=== PATIENT | male | born 2000 | race Caucasian/White ===

== ENCOUNTER 2023-01-20 15:22 | Inpatient (IN) | payer MEDICAID, SELFPAY ==
[2023-01-20] VITALS (15 sets, daily range): BP systolic 117–152; BP diastolic 72–99; PULSE 103–139; RESP 18; TEMP 36.2–37.7; O2SAT 97–100
--- NOTE | ~2023-01-20 | NM_ITS ---
EXAMINATION: NM renal flow and function DATE: 01/24/23 INDICATION: Pelvic mass. Right lower quadrant abdominal pain. TECHNIQUE: 8 mCi Tc-99m MAG3 was administered IV. The patient was scanned in the supine position. A posterior abdominal radionuclide angiogram was obtained. A subsequent time course of static images of the kidneys, ureters, and bladder was obtained. COMPARISON: CT abdomen and pelvis 01/20/23 FINDINGS: The posterior abdominal radionuclide angiogram and sequential static images show normal siz e, position, and morphology of the left kidney. There is no right kidney. Peak renal parenchymal upta ke was 4 min in left kidney (normal peak 3-5 minutes). No abnormalities of the ureters or bladder ar e seen. T1/2 for clearance of activity from the left kidney and proximal collecting system was 14 minutes. IMPRESSION: 1. Single left kidney. Reviewed, dictated and finalized at location A. IMPRESSION: 1. Single left kidney.
--- NOTE | ~2023-01-20 | CT_ITS ---
EXAMINATION: CT abdomen pelvis w con INDICATION: Abdominal pain TECHNIQUE: Computed tomographic images of the abdomen and pelvis were obtained after the administrati on of 100 cc of Omnipaque 350 intravenous contrast. The dose-length product (DLP) was 295.13 mGy-cm. Automated exposure control and iterative reconstruction technique were employed. COMPARISON: None available FINDINGS: The lung bases are clear. The heart size is normal. The liver, spleen, pancreas, gallbladde r, and adrenal glands are normal. The left kidney is unremarkable. There is a soft tissue density of the right pelvis which likely reflects a somewhat deformed right kidney. There is marked wall thicken ing and inflammatory change of the terminal ileum. There are multiple interloop abscesses. The larges t appears to measure approximately 4.7 x 3.9 cm. There are multiple reactive lymph nodes. The appendi x is normal. There is a moderate volume of ascites. IMPRESSION: 1. Marked wall thickening and inflammation of the terminal ileum, likely Crohn's disease. 2. Multiple interloop abscesses measuring up to 4.7 cm. 3. Moderate volume of ascites. Reviewed, dictated and finalized at location F. IMPRESSION: 1. Marked wall thickening and inflammation of the terminal ileum, likely Crohn' s disease. 2. Multiple interloop abscesses measuring up to 4.7 cm. 3. Moderate volume of ascites.
--- NOTE | 2023-01-20 18:05 | ED.ABDPAIN ---
HPI - Abdominal Pain General Chief Complaint: Abdominal Pain <JOSE Aviles Last Filed: 01/20/23 22:19> Stated Complaint: abdominal pain <JOSE Aviles Last Filed: 01/20/23 22:19> Time Seen by Provider: 01/20/23 17:43 <JOSE Aviles Last Filed: 01/20/23 22:19> Source: patient and family <JOSE Aviles Last Filed: 01/20/23 22:19> Mode of arrival: ambulatory <JOSE Aviles Last Filed: 01/20/23 22:19> Limitations: no limitations <JOSE Aviles Last Filed: 01/20/23 22:19> History of Present Illness HPI narrative: Patient is a 22-year-old male who presents to the ED with report of diffuse abdominal pain. Patient reports having intermittent diffuse cramping pain for the last 4 weeks. He has been taking ibuprofen and Tums for this at times. Today the pain became more sharp and he developed a fever up to 102 degrees at home, which prompted his presentation. He has not taken anything for his pain or fever today. Patient believes he may have IBS. He denies any nausea, vomiting, diarrhea, constipation, rectal bleeding, melena, urinary symptoms. Mother mentions he has also had a cough recently, which patient believes is related to allergies. <JSOE Aviles Last Filed: 01/20/23 22:19> Related Data Allergies/Adverse Reactions: Allergies Allergy/AdvReac Type Severity Reaction Status Date / Time Penicillins Allergy Mild RASH Verified 03/14/12 16:41 <JOSE Aviles Last Filed: 01/20/23 22:19> Review of Systems Review of Systems: CONSTITUTIONAL: See HPI. ENT: Denies rhinorrhea, congestion, sore throat. CARDIOVASCULAR: Denies chest pain. RESPIRATORY: See HPI. GASTROINTESTINAL: See HPI. GENITOURINARY: Denies dysuria or hematuria. SKIN: Denies rash or itching. MUSCULOSKELETAL: Denies back pain, joint pain, or myalgia. <Mariama Magana PA-C - Last Filed: 01/20/23 22:19> All systems reviewed & are unremarkable except as noted in HPI and below <Mariama Magana PA-C - Last Filed: 01/20/23 22:19> PMFSH Past Medical History Medical History: Medical History (Updated 01/21/23 @ 05:52 by Cathy Marshall DO) No significant past medical history <Mariama Magana PA-C - Last Filed: 01/20/23 22:19> Surgical History Surgical History: Surgical History (Updated 01/21/23 @ 05:52 by Cathy Marshall DO) History of esophagogastroduodenoscopy (EGD) <Mariama Magana PA-C - Last Filed: 01/20/23 22:19> Family History Family History: Family History (Updated 01/21/23 @ 05:55 by Cathy Marshall DO) Father Healthy adult Mother Healthy adult Sibling Healthy adult <Mariama Magana PA-C - Last Filed: 01/20/23 22:19> Social History Social History: Social History (Updated 01/21/23 @ 05:56 by Cathy Marshall DO) Social History: He recently graduated from the [employer] with associate's degree in film and editing. He uses marijuana edibles on occasion. He is a lifelong nonsmoker. He occasionally drinks alcohol in moderation. He lives at home with his parents. Smoking status: Never smoker Alcohol intake: current Drinks per week: 1 Substance use: never Lack of Transportation: No Lack of Food: Never True Current Housing: I Have Housing Concerned About Future Housing: No Difficulty Paying Gas/Electric Bills: No Difficulty Paying for Meds: No Currently Unemployed: No Education: Associate Degree Difficulty w/ Childcare or Family Care: No Spiritual care concerns: No <JOSE Aviles Last Filed: 01/20/23 22:19> Exam Narrative: GENERAL: Well appearing, well-nourished, non-toxic, in no acute distress. HEAD: Normocephalic, atraumatic. NECK: Supple. No adenopathy, no masses. RESPIRATORY: Airway patent, respirations nonlabored. Clear to auscultation bilaterally, no
[2023-01-20] MEDS: SODIUM CHLORIDE 0.9% IV 1,000 ML 999 ML IV CONT ×2 (18:17→21:36)
[2023-01-20] MEDS: ACETAMINOPHEN 500 MG TABLET 1000 MG PO (18:17)
[2023-01-20 18:19] LABS: Hematocrit 43.8 % (42.0-52.0); Hemoglobin 13.9 g/dL (14.0-18.0); Mean Corpuscular HGB Conc 31.7 g/dl (32-36); Mean Corpuscular Hemoglobin 25.5 pg (26-34); Mean Corpuscular Volume 80.4 fl (80-100); Mean Platelet Volume 9.6 fl (7.4-10.4); Platelet Count Result 388 k/mm3 (150-375); Red Blood Count 5.45 M/mm3 (4.6-6.20); Red Cell Distribution Width 12.5 % (11.5-14.5); White Blood Count 21.6 K/mm3 (4.5-10.0)
[2023-01-20 18:23] LABS: Add Urine Microscopic? YES; Appearance Urine Clear (Clear); Bacteria Urine None Seen /hpf; Bilirubin Urine Negative (Negative); Blood Urine Negative (Negative); Color Urine Yellow (Yellow); Glucose Urine UA Negative (Negative); Ketones Urine Negative (Negative); Leukocyte Esterase Ur Trace LEU/UL (Negative); Nitrate Urine Negative (Negative); Non Pathogenic Casts 0-2; Protein Urine 1+ mg/dL (Negative); RBC Urine 0-2 /hpf (0-2); Specific Grav Ur 1.021 (1.001-1.035); Squamous Epithelial Cell Urine None seen /hpf (Few); Urobilinogen Urine 0.2 mg/dL (<2.0); WBC Urine 0-5 /hpf; pH Urine 6.5 (5.0-9.0)
[2023-01-20 18:27] LABS: Alanine Aminotransferase 20 U/L (6-50); Albumin Level 4.3 g/dL (3.5-5.1); Alkaline Phosphatase 85 U/L (38-126); Anion Gap 8 mmol/L (8-16); Aspartate Amino Transferase 20 U/L (17-59); Bilirubin,Total 0.5 mg/dL (0.2-1.3); Blood Urea Nitrogen 15 mg/dL (9-20); Calcium 8.9 mg/dL (8.4-10.2); Carbon Dioxide 33 mmol/L (22-30); Chloride 101 mmol/L (98-107); Estimated Glomerular Filt Rate > 60; Glucose 101 mg/dL (65-110); Lipase 160 U/L (23-300); Potassium 3.4 mmol/L (3.4-5.0); Sodium 142 mmol/L (137-145)
[2023-01-20 18:45] LABS: Band Neutrophils Percent 2 % (0-6); Lymphocytes Absolute Manual 0.86 K/mm3 (1.1-4.5); Monocytes Absolute Manual 1.29 K/mm3 (0.1-0.90); Monocytes Percent Manual 6 % (3-9); Neutrophils Absolute Manual 19.44 K/mm3 (1.3-6.7); Neutrophils Percent Manual 88 % (46-73); Total Cells Counted 100
[2023-01-20 18:46] LABS: Hypochromasia 1+ (NORMAL); Schistocytes None Seen (NORMAL)
[2023-01-20 19:11] LABS: Influenza A QL RT-PCR Negative (Negative); Influenza B QL RT-PCR Negative (Negative); SARS-CoV-2 RNA PCR Negative (Negative)
[2023-01-20] MEDS: metroNIDAZOLE 500 MG/ISO 100ML 500 MG/100 ML BAG 100 MG IVPB (20:38)
[2023-01-20 22:14] LABS: Lactic Acid Reflex 1.4 mmol/L (0.7-2.0)
--- NOTE | 2023-01-20 22:20 | ADMGEN ---
This patient, Enrique Shukla, was admitted to [facility] Surg Room 321-. Patient/family oriented to hospital policies and general routines including ID bracelet, bed and alarms, visiting hours, pain management, procedures, bathroom and other care routines, personal items, smoking policy, room service/diet, and visiting hours. Information on how to activate the Rapid Response Team has been discussed. Patient/Family are encouraged to report perceived risks to care and to ask questions if they do not understand what they are told or what they should do.
[2023-01-21] MEDS: ONDANSETRON INJ 4 MG/2 ML VIAL IV PUSH ×4 (00:26→23:02)
--- NOTE | 2023-01-21 05:38 | PM.IMHP ---
H&P: HPI History of Present Illness Date/Time: 01/21/23 01:00 Chief Complaint: Abdominal pain for several weeks Narrative: 22-year-old male previously healthy who presented to the ER with sharp intermittent abdominal pain for several weeks. The patient states that in the distant past he had and some intermittent GI issues but it sounds that these issues were when he was extremely young. It was until the last 4 weeks or so that he began having intermittent like sharp stabbing abdominal pain 2/10 in intensity. He would not notice a eliciting or or relieving factors for the abdominal pain. Would not have any diarrhea mucousy stools or abdominal distension. He was having some associated belching. He would report occasional harder stools every couple of months but nothing of any real significance. He reports that once every couple months he may also have a little bit of blood in his stools but nothing that he was overly concerned about. He reports that his weight has been stable between 140-150 lb for several years. He did have an EGD several years ago after having some hematemesis. But it sounds like the hematemesis was due to Juhi-Plummer tears. He reports that he was having some chills yesterday before coming to the ER. His parents checked his temperature at home and his temperature was a 102?. By time he arrived to the ER his temperature was normal. He did not take any antipyretics. He had not tried taking any medications for his abdominal pain. He denies any family history of inflammatory bowel disease. A CT scan in the ER demonstrated marked wall thickening and inflammation of the terminal ileum likely due to Crohn's disease was multiple inter loop abscesses measuring 4.7 cm at the largest. Moderate volume of ascites. Patient was admitted for treatment of intra-abdominal abscess and sepsis. The patient received 2 L of IV fluid bolus in the ER with improvement in his tachycardia. He was started on antibiotic therapy with Rocephin and Flagyl. Review of Systems Review of Systems: 12 systems were reviewed with pertinent positives and negatives per HPI. Except as documented in the HPI, all other systems were reviewed and are negative. COUNT INCLUDES THE [facility] Past Medical History Medical History (Updated 01/21/23 @ 05:52 by Cathy Marshall DO) No significant past medical history Surgical History Surgical History (Updated 01/21/23 @ 05:52 by Cathy Marshall DO) History of esophagogastroduodenoscopy (EGD) Family History Family History (Updated 01/21/23 @ 05:55 by Cathy Marshall DO) Father Healthy adult Mother Healthy adult Sibling Healthy adult Social History Social History (Updated 01/21/23 @ 05:56 by Cathy Marshall DO) Social History: He recently graduated from the [employer] with associate's degree in film and editing. He uses marijuana edibles on occasion. He is a lifelong nonsmoker. He occasionally drinks alcohol in moderation. He lives at home with his parents. Smoking status: Never smoker Alcohol intake: current Drinks per week: 1 Substance use: never Lack of Transportation: No Lack of Food: Never True Current Housing: I Have Housing Concerned About Future Housing: No Difficulty Paying Gas/Electric Bills: No Difficulty Paying for Meds: No Currently Unemployed: No Education: Associate Degree Difficulty w/ Childcare or Family Care: No Spiritual care concerns: No Meds Home Medications and Allergies Allergies Allergy/AdvReac Type Severity Reaction Status Date / Time Penicillins Allergy Mild RASH Verified 03/14/12 16:41 Vital Signs Vital Signs - 24 hr 01/20/23 15:48 01/20/23 17:53 01/20/23 17:54 Temperature 99.8 F H Pulse Rate 139 H Respiratory Rate 18 Blood Pressure 117/75 126/84 Pulse Oximetry 99 100 100 Oxygen Delivery Room Air 01/20/23 18:00 01/20/23 18:01 01/20/23 19:01 Temperature Pulse Rate 103 H Respiratory Rate 1
[2023-01-21 05:49] VITALS: BMI 21.7
[2023-01-21 06:00] VITALS: BP 123/62; PULSE 93; RESP 18; TEMP 36.3; O2SAT 100
[2023-01-21] MEDS: SODIUM CHLORIDE 0.9% IV 1,000 ML 100 ML IV CONT ×2 (06:11→18:05)
[2023-01-21] MEDS: metroNIDAZOLE 500 MG/ISO 100ML 500 MG/100 ML BAG 100 MG IVPB ×3 (06:12→21:46)
[2023-01-21 06:21] LABS: Basophils Absolute Auto 0.1 K/mm3 (0.0-0.1); Basophils Percent Auto 0.3 % (0.2-1.2); Eosinophils Percent Auto 0.1 % (0-4.4); Hematocrit 36.8 % (42.0-52.0); Hemoglobin 11.7 g/dL (14.0-18.0); Immature Granulocyte Absolute 0.08 K/mm3 (0.00-0.031); Immature Granulocyte Percent A 0.4 % (0-0.5); Lymphocytes Absolute Auto 1.67 K/mm3 (0.9-3.2); Lymphocytes Percent Auto 9.4 % (18.3-44.2); Mean Corpuscular HGB Conc 31.8 g/dl (32-36); Mean Corpuscular Hemoglobin 25.2 pg (26-34); Mean Corpuscular Volume 79.1 fl (80-100); Mean Platelet Volume 9.6 fl (7.4-10.4); Monocytes Absolute Auto 1.9 K/mm3 (0.1-0.6); Monocytes Percent Auto 10.5 % (2.6-8.5); Neutrophils Absolute Auto 14.1 K/mm3 (1.3-6.7); Neutrophils Percent Auto 79.3 % (45.5-73.1); Platelet Count Result 306 k/mm3 (150-375); Red Blood Count 4.65 M/mm3 (4.6-6.20); Red Cell Distribution Width 12.3 % (11.5-14.5); White Blood Count 17.8 K/mm3 (4.5-10.0)
[2023-01-21 06:35] LABS: Anion Gap 7 mmol/L (8-16); Blood Urea Nitrogen 11 mg/dL (9-20); Calcium 8.4 mg/dL (8.4-10.2); Carbon Dioxide 28 mmol/L (22-30); Chloride 104 mmol/L (98-107); Estimated CRCL calculation 108 ml/min; Estimated Glomerular Filt Rate > 60; Glucose 95 mg/dL (65-110); Potassium 3.5 mmol/L (3.4-5.0); Sodium 139 mmol/L (137-145)
[2023-01-21 08:18] VITALS: O2SAT 99
[2023-01-21] MEDS: ENOXAPARIN 40 MG/0.4 ML SYRINGE SUB-Q (08:18)
--- NOTE | 2023-01-21 09:59 | PM.CNGS ---
Assessment and Plan Assessment and plan (1) Intra-abdominal abscess: Code(s): K65.1 - Peritoneal abscess Status: Acute Assessment and Plan: I have reviewed the CT and discussed the findings with the patient. He has multiple abdominal abscesses and findings consistent with Crohn's disease. He has been started on IV antibiotics and GI has been consulted. Interventional Radiology is not available today, but I will discuss the CT with them tomorrow and determine if percutaneous drainage is feasible. He is currently showing some signs of improvement with bowel rest and IV antibiotics. Will allow for clear liquids today and await further recommendations by GI. (2) Crohn's disease involving terminal ileum: Code(s): K50.00 - Crohn's disease of small intestine without complications Status: Acute (3) Pelvic kidney: Code(s): Q63.2 - Ectopic kidney Status: Acute History of Present Illness Consult details Consult date: 01/21/23 Reason for consult: other (Intraabdominal abscess) Requesting physician: Mariama Magana PA-C Narrative: This is a 22-year-old man who I am asked to see for multiple intra-abdominal abscesses. He presented to the emergency department yesterday with worsening abdominal pain and fevers. He began having some mild cramping abdominal pain about 2-3 weeks ago. This has been intermittent. He then began experiencing fevers yesterday and decided to come into the emergency department. His bowels have been moving, but he does occasionally get diarrhea. He has had a small amount of blood in his stool at times as well. He denies any significant weight loss. He denies any identifying triggers to the pains. He has no family history of Crohn's disease. His pain is slightly improved since being admitted. He has not had a fever since admission. Review of Systems Review of Systems: All systems reviewed & are unremarkable except as noted in HPI and below Constitutional: Constitutional: Reports as per HPI Eyes: Eyes: Denies change in vision ENT: Denies hearing loss, Denies neck pain and Denies sore throat Cardiovascular: Cardiovascular: Denies chest pain and Denies dyspnea Respiratory: Respiratory: Denies cough, Denies dyspnea and Denies wheezing Gastrointestinal: Gastrointestinal: Reports as per HPI Genitourinary: Genitourinary: Denies hematuria and Denies dysuria Musculoskeletal: Musculoskeletal: Denies arthralgias, Denies joint swelling and Denies neck pain Allergic/Immunologic: Allergic/Immunologic: Denies wheezing PMFSH Past Medical History Medical History (Updated 01/21/23 @ 10:04 by De Slade DO) No significant past medical history Pelvic kidney Right pelvic kidney identified on CT 01/20/23 Surgical History Surgical History (Updated 01/21/23 @ 05:52 by Cathy Marshall DO) History of esophagogastroduodenoscopy (EGD) Family History Family History (Updated 01/21/23 @ 05:55 by Cathy Marshall DO) Father Healthy adult Mother Healthy adult Sibling Healthy adult Social History Social History (Updated 01/21/23 @ 05:56 by Cathy Marshall DO) Social History: He recently graduated from the [employer] with associate's degree in film and editing. He uses marijuana edibles on occasion. He is a lifelong nonsmoker. He occasionally drinks alcohol in moderation. He lives at home with his parents. Smoking status: Never smoker Alcohol intake: current Drinks per week: 1 Substance use: never Lack of Transportation: No Lack of Food: Never True Current Housing: I Have Housing Concerned About Future Housing: No Difficulty Paying Gas/Electric Bills: No Difficulty Paying for Meds: No Currently Unemployed: No Education: Associate Degree Difficulty w/ Childcare or Family Care: No Spiritual care concerns: No Meds Home Medications and Allergies Allergies Allergy/AdvReac Type Severity Reaction Stat
--- NOTE | 2023-01-21 12:08 | PM.IMPN ---
Progress Note: A&P Assessment and Plan (1) Sepsis: Qualifiers: Sepsis acute organ dysfunction status: unspecified Sepsis type: sepsis due to unspecified organism Qualified Code(s): A41.9 - Sepsis, unspecified organism Code(s): A41.9 - Sepsis, unspecified organism Status: Acute Assessment and Plan: The patient met sepsis criteria on admission with fever, tachycardia and leukocytosis. Sepsis is due to intra-abdominal abscess associated with terminal ileitis most likely due to Crohn's disease. Patient received 2 L of IV fluid bolus. He was continued on IV fluids due to persistent tachycardia but better now. WBC trending down. No further fevers. BCx pending. Continue IV abx. (2) Intra-abdominal abscess: Code(s): K65.1 - Peritoneal abscess Status: Acute Assessment and Plan: CT scan on admission showing marked wall thickening and inflammation of the terminal ileum with multiple interloop abscesses up to 4.7cm with moderate volume of ascites. Does not appear to have peritoneal signs. Blood cultures are pending. General surgery has been consulted. Patient may need percutaneous drainage of abscesses. Diet per GenSurg Continue empiric antibiotic therapy with Rocephin and Flagyl. (3) Crohn's disease involving terminal ileum: Code(s): K50.00 - Crohn's disease of small intestine without complications Status: Acute Assessment and Plan: Patient has findings concerning for Crohn's disease. Patient will eventually need colonoscopy for further evaluation. GI consulted Check IBD panel. (4) Pelvic kidney: Code(s): Q63.2 - Ectopic kidney Status: Acute Assessment and Plan: CT shows soft tissue density in the right pelvis likely represents a somewhat deformed right kidney. Urinalysis was clear. This is probably an incidental finding. Renal function is normal. He may need NM scan to determine functionality. Subjective Date/time seen: 01/21/23 12:08 Interval history: 22yo healthy male here for abdominal pain. Noting decreased abdominal pain. Passing flatus but no BMs. No n/v but had mild nausea after IV Flagyl. Exam Narrative: AF 97.4 123/62 93 18 99% ra Gen - NARD Chest - CTA bilaterally, nml RR CV - RRR S1/S2 Abd - Soft, ND, No guarding, no rebound, minimal RLQ pain, no referred pain, +BS Ext - No pedal edema Psych - Nml mood and affect Skin - Warm and dry Objective Data Vital Signs Vital Signs: Vital Signs - 24 hr 01/20/23 15:48 01/20/23 17:53 01/20/23 17:54 Temperature 99.8 F H Pulse Rate 139 H Respiratory Rate 18 Blood Pressure 117/75 126/84 Pulse Oximetry 99 100 100 Oxygen Delivery Room Air 01/20/23 18:00 01/20/23 18:01 01/20/23 19:01 Temperature Pulse Rate 103 H Respiratory Rate 18 Blood Pressure 142/89 H 137/82 Pulse Oximetry 100 100 98 Oxygen Delivery 01/20/23 19:01 01/20/23 19:15 01/20/23 19:31 Temperature Pulse Rate Respiratory Rate Blood Pressure 137/82 135/85 137/84 Pulse Oximetry 100 97 97 Oxygen Delivery 01/20/23 19:45 01/20/23 20:00 01/20/23 20:16 Temperature Pulse Rate Respiratory Rate Blood Pressure 141/82 H 136/82 Pulse Oximetry 99 97 99 Oxygen Delivery 01/20/23 20:46 01/20/23 21:01 01/20/23 21:15 Temperature Pulse Rate Respiratory Rate Blood Pressure 136/72 131/78 131/85 Pulse Oximetry 99 100 98 Oxygen Delivery 01/20/23 22:00 01/21/23 06:00 01/21/23 08:18 Temperature 97.1 F L 97.4 F L Pulse Rate 108 H 93 Respiratory Rate 18 18 Blood Pressure 152/99 H 123/62 Pulse Oximetry 100 100 99 Oxygen Delivery Room Air Intake/Output Intake/Output: Intake & Output 01/18/23 01/19/23 01/20/23 01/21/23 23:59 23:59 23:59 23:59 Intake Total 1150 0 Output Total 825 Balance 1150 -825 Meds/Results Medications: Active Medications Generic Name Dose Route Start Last Ad
[2023-01-21 14:00] VITALS: BP 129/73; PULSE 73; RESP 14; TEMP 36.1; O2SAT 97
--- NOTE | 2023-01-21 18:20 | WPDGICN ---
Assessment and Plan Assessment and plan (1) Crohn's disease involving terminal ileum: Code(s): K50.00 - Crohn's disease of small intestine without complications Status: Acute Assessment and Plan: it seems that he has Crohn's disease complicated with intra abdominal abscess, surgery on board will ask IR if can drain on iv antibiotics, then probably will benefit from iv steroids but wait until infection is controlled will get HBV and TB status since he will also need to be on biologics as treatment for Crohn's (this was discussed with mother at bedside and patient)- he will have again medical insurance February 10 also colonoscopy after infection is better to confirm crohn's and get biopsies (2) Intra-abdominal abscess: Code(s): K65.1 - Peritoneal abscess Status: Acute Assessment and Plan: abx surgery on board IR to evaluate (3) Sepsis: Qualifiers: Sepsis acute organ dysfunction status: unspecified Sepsis type: sepsis due to unspecified organism Qualified Code(s): A41.9 - Sepsis, unspecified organism Code(s): A41.9 - Sepsis, unspecified organism Status: Acute Assessment and Plan: on abx (4) Abdominal pain: Code(s): R10.9 - Unspecified abdominal pain Status: Acute (5) Leukocytosis: Code(s): D72.829 - Elevated white blood cell count, unspecified Status: Acute GI Consult Note Consult date/time: 01/21/23 18:20 Reason for consult: abdominal pain, ileitis HPI: Enrique Shukla is a 22 year old male with history of chronic dyspepsia and nausea for years- he had egd more than 5 years ago due to coffee ground emesis and told that had tear treated briely with ppi. He is here with ongoing intermittent sharp stabbing abdominal pain for about 1 month, also belching. Denies weight loss, couple times had diarrhea but for the most part no changes in bowel movement. Pain worsened and then had fevere at home 102F finally came to ER (he did not seek medical care because his medical insurance is not good until February), stable weight and never had colonoscopy. Had leukocytosis and CT scan showed marked wall thickening and inflammation of the terminal ileum, likely Crohn's disease. Multiple interloop abscesses measuring up to 4.7 cm. Moderate volume of ascites. He was started on iv antibiotics. Surgery on board. Review of Systems Constitutional: Constitutional: Reports chills and Reports fever(s) Eyes: Eyes: Denies blurry vision ENT: Reports Normal hearing present Cardiovascular: Cardiovascular: Denies chest pain Respiratory: Respiratory: Denies chest congestion Gastrointestinal: Gastrointestinal: Reports abdominal pain and Reports nausea Genitourinary: Genitourinary: Denies urinary frequency Musculoskeletal: Musculoskeletal: Denies arthralgias Integumentary/Breasts: Skin/Breast: Denies rash Neurologic: Denies confusion Psychiatric: Psychiatric: Denies behavioral changes [facility] Past Medical History Medical History (Updated 01/21/23 @ 18:25 by Timur Barbour MD) Abdominal pain Leukocytosis No significant past medical history Pelvic kidney Right pelvic kidney identified on CT 01/20/23 Surgical History Surgical History (Updated 01/21/23 @ 05:52 by Ctahy Marshall DO) History of esophagogastroduodenoscopy (EGD) Family History Family History (Updated 01/21/23 @ 05:55 by Cathy Marshall DO) Father Healthy adult Mother Healthy adult Sibling Healthy adult Social History Social History (Updated 01/21/23 @ 05:56 by Cathy Marshall DO) Social History: He recently graduated from the [employer] with associate's degree in film and editing. He uses marijuana edibles on occasion. He is a lifelong nonsmoker. He occasionally drinks alcohol in moderation. He lives at home with his parents. Smoking status: Never smoker Alcohol intake: current Drinks per week: 1 Substance use: never Lack o
[2023-01-21 21:40] VITALS: BP 118/70; PULSE 84; RESP 12; TEMP 36.6; O2SAT 100
[2023-01-22] MEDS: SODIUM CHLORIDE 0.9% IV 1,000 ML 100 ML IV CONT (05:12)
[2023-01-22] MEDS: metroNIDAZOLE 500 MG/ISO 100ML 500 MG/100 ML BAG 100 MG IVPB ×3 (05:13→21:02)
[2023-01-22 05:43] VITALS: BP 125/75; PULSE 81; RESP 14; TEMP 36.1; O2SAT 100
[2023-01-22 06:30] LABS: Hematocrit 38.3 % (42.0-52.0); Mean Corpuscular HGB Conc 31.3 g/dl (32-36); Mean Corpuscular Hemoglobin 24.8 pg (26-34); Mean Corpuscular Volume 79.1 fl (80-100); Mean Platelet Volume 9.8 fl (7.4-10.4); Platelet Count Result 318 k/mm3 (150-375); Red Blood Count 4.84 M/mm3 (4.6-6.20); Red Cell Distribution Width 12.4 % (11.5-14.5); White Blood Count 13.4 K/mm3 (4.5-10.0)
[2023-01-22] MEDS: ONDANSETRON INJ 4 MG/2 ML VIAL IV PUSH ×3 (06:30→21:09)
[2023-01-22 06:48] LABS: Erythrocyte Sedimentation Rate 57 mm/hr (0-20)
[2023-01-22 06:53] LABS: Anion Gap 10 mmol/L (8-16); Blood Urea Nitrogen 9 mg/dL (9-20); Calcium 8.5 mg/dL (8.4-10.2); Carbon Dioxide 27 mmol/L (22-30); Chloride 102 mmol/L (98-107); Estimated CRCL calculation 108 ml/min; Estimated Glomerular Filt Rate > 60; Glucose 84 mg/dL (65-110); Potassium 3.5 mmol/L (3.4-5.0); Sodium 139 mmol/L (137-145)
[2023-01-22 07:21] LABS: CRP 18.2 mg/dL (<1.0)
[2023-01-22] MEDS: ENOXAPARIN 40 MG/0.4 ML SYRINGE SUB-Q (08:48)
[2023-01-22 09:32] LABS: Hepatitis B Surface Antigen Negative (Negative)
[2023-01-22 10:00] LABS: Hepatitis B Surface Anti Res Positive
--- NOTE | 2023-01-22 12:30 | PM.PNGS ---
Progress Note: A&P Assessment and Plan (1) Intra-abdominal abscess: Code(s): K65.1 - Peritoneal abscess Status: Acute Assessment and Plan: I reviewed the CT with radiology, and abscess appears small and may not get much benefit from percutaneous drainage at this point. Patient is feeling better and WBC is improved. Continue IV antibiotics at this time. OK to have clear liquids and may advance per GI recommendations. No surgical intervention needed at this time. (2) Crohn's disease involving terminal ileum: Code(s): K50.00 - Crohn's disease of small intestine without complications Status: Acute (3) Leukocytosis: Code(s): D72.829 - Elevated white blood cell count, unspecified Status: Acute (4) Pelvic mass in male: Code(s): R19.00 - Intra-abdominal and pelvic swelling, mass and lump, unspecified site Status: Acute Assessment and Plan: Pelvic mass unclear at this time. Might have to plan for percutaneous biopsy at some point once this current infection is cleared. Subjective Subjective Date/Time Seen: 01/22/23 12:30 Interval history: Pain improving. Bowels moving. No fevers. Exam GI: Inspection: non-distended GI Palp: Yes Soft to palpation, No Tenderness to palpation present (GI), No Guarding due to palpation present (GI) and No Rebound tenderness present Auscultation: normal bowel sounds Objective Data Vital Signs Vital Signs: Vital Signs - 24 hr 01/21/23 14:00 01/21/23 20:00 01/21/23 21:40 Temperature 36.1 C L 36.6 C Pulse Rate 73 84 Respiratory Rate 14 12 Blood Pressure 129/73 118/70 Pulse Oximetry 97 100 Oxygen Delivery Room Air 01/22/23 05:43 01/22/23 08:00 Temperature 36.1 C L Pulse Rate 81 Respiratory Rate 14 Blood Pressure 125/75 Pulse Oximetry 100 Oxygen Delivery Room Air Intake/Output Intake/Output: Intake & Output 01/19/23 01/20/23 01/21/23 01/22/23 23:59 23:59 23:59 23:59 Intake Total 1150 1586 1850 Output Total 2125 450 Balance 1150 -539 1400 Meds/Results Medications: Active Medications Generic Name Dose Route Start Last Admin Trade Name Freq PRN Reason Stop Dose Admin Enoxaparin Sodium 40 mg 01/21/23 09:00 01/22/23 08:48 Enoxaparin 40 Mg/0.4 Ml Syringe SUB-Q 40 mg DAILY MARCOS Administration Ceftriaxone Sodium 1 gm in 50 mls @ 100 mls/hr 01/21/23 20:00 01/21/23 20:40 Rocephin 1 Gm/Ns 50 Ml IVPB Infused Q24H MARCOS Infusion Metronidazole 500 mg in 100 mls @ 100 mls/hr 01/21/23 06:00 01/22/23 06:10 Flagyl 500 Mg/Iso Soln 100 Ml IVPB Infused Q8H MARCOS Infusion Sodium Chloride 1,000 mls @ 70 mls/hr 01/21/23 05:55 01/22/23 05:12 Normal Saline Iv IV CONT 100 mls/hr .[id number] MARCOS Administration Ondansetron HCl 4 mg 01/20/23 23:54 01/22/23 06:30 Ondansetron Inj 4 Mg/2 Ml Vial IV PUSH 4 mg Q4H PRN Administration Nausea And Vomiting Radiology Results: ITS Impressions Abdomen/Pelvis CT 01/20/23 19:04 IMPRESSION: 1. Marked wall thickening and inflammation of the terminal ileum, likely Crohn's disease. 2. Multiple interloop abscesses measuring up to 4.7 cm. 3. Moderate volume of ascites. ADDENDUM: 01/22/23 1106 There is an 8.1 x 3.1 x 8.1 cm homogeneous lobular mass in the pelvis. The differential diagnosis includes venous malformation, lymphoma, and sarcoma. I discussed this finding with Dr. Slade. Labs Labs: Laboratory Results - last 24 hr 01/22/23 06:03 WBC 13.4 H RBC 4.84 Hgb 12.0 L Hct 38.3 L MCV 79.1 L MCH 24.8 L MCHC 31.3 L RDW 12.4 Plt Count 318 MPV 9.8 ESR 57 H Sodium 139 Potassium 3.5 Chloride 102 Carbon Dioxide 27 Anion Gap 10 BUN 9 Creatinine 1.00 Estim Creat Clear Calc 108 Estimated GFR > 60 Glucose 84 Calcium 8.5 C-Reactive Protein 18.2 H Hep Bs Antigen Negative Hep Bs Antibody Positive
[2023-01-22 14:00] VITALS: BP 118/69; PULSE 70; RESP 16; TEMP 36.2; O2SAT 99
--- NOTE | 2023-01-22 14:11 | PCCCNOTE ---
On 01/22/23, the student, [Mariana Gibbons], provided care and completed [facility] documentation on this patient. I have reviewed the student's documentation and agree with the findings.
[2023-01-22] MEDS: SODIUM CHLORIDE 0.9% IV 1,000 ML 70 ML IV CONT (14:53)
--- NOTE | 2023-01-22 15:47 | WPDGIPROGNO ---
Progress Note: A&P Assessment and Plan (1) Crohn's disease involving terminal ileum: Code(s): K50.00 - Crohn's disease of small intestine without complications Status: Acute Assessment and Plan: presentation and radiological findings consistent with crohn's intra abdominal abscess too small for drainage per radiology he is responding to abx will add low dose steroids probably we could perform colonoscopy in 2 days to confirm diagnosis HBV/TB status pending- he will need to be on biologics/advance therapy (2) Intra-abdominal abscess: Code(s): K65.1 - Peritoneal abscess Status: Acute Assessment and Plan: responding to medical treatment (3) Abdominal pain: Code(s): R10.9 - Unspecified abdominal pain Status: Acute Assessment and Plan: improved liquid diet (4) Leukocytosis: Code(s): D72.829 - Elevated white blood cell count, unspecified Status: Acute (5) Sepsis: Qualifiers: Sepsis acute organ dysfunction status: unspecified Sepsis type: sepsis due to unspecified organism Qualified Code(s): A41.9 - Sepsis, unspecified organism Code(s): A41.9 - Sepsis, unspecified organism Status: Acute Subjective Date/time seen: 01/22/23 15:47 Interval history: he is feeling better, less abdominal pain and more comfortable Review of Systems Review of Systems: All systems reviewed & are unremarkable except as noted in HPI and below Exam Const: General: comfortable HENMT: Face/Nose/Sinus: Normal nares present Eyes: Sclera: sclerae normal Neck: Neck: supple Resp: Auscultation: clear to auscultation bilaterally Cardio: Rate: regular rate GI: Inspection: non-distended GI Palp: Yes Soft to palpation, No Tenderness to palpation present (GI), No Guarding due to palpation present (GI) and No Rebound tenderness present Auscultation: normal bowel sounds Skin: General skin exam: no rashes or lesions noted Neuro: Speech: normal speech Motor exam (neuro): 5/5 motor strength present throughout Extrem: General: normal to inspection Psych: Mental Status: mental status grossly normal Objective Data Vital Signs Vital Signs: Vital Signs - 24 hr 01/21/23 20:00 01/21/23 21:40 01/22/23 05:43 Temperature 97.9 F 96.9 F L Pulse Rate 84 81 Respiratory Rate 12 14 Blood Pressure 118/70 125/75 Pulse Oximetry 100 100 Oxygen Delivery Room Air 01/22/23 08:00 01/22/23 14:00 Temperature 97.1 F L Pulse Rate 70 Respiratory Rate 16 Blood Pressure 118/69 Pulse Oximetry 99 Oxygen Delivery Room Air Intake/Output Intake/Output: Intake & Output 01/19/23 01/20/23 01/21/23 01/22/23 23:59 23:59 23:59 23:59 Intake Total 1150 1586 2850 Output Total 2125 450 Balance 1150 -539 2400 Meds/Results Medications: Active Medications Generic Name Dose Route Start Last Admin Trade Name Freq PRN Reason Stop Dose Admin Enoxaparin Sodium 40 mg 01/21/23 09:00 01/22/23 08:48 Enoxaparin 40 Mg/0.4 Ml Syringe SUB-Q 40 mg DAILY MARCOS Administration Ceftriaxone Sodium 1 gm in 50 mls @ 100 mls/hr 01/21/23 20:00 01/21/23 20:40 Rocephin 1 Gm/Ns 50 Ml IVPB Infused Q24H MARCOS Infusion Metronidazole 500 mg in 100 mls @ 100 mls/hr 01/21/23 06:00 01/22/23 14:52 Flagyl 500 Mg/Iso Soln 100 Ml IVPB 100 mls/hr Q8H MARCOS Administration Sodium Chloride 1,000 mls @ 70 mls/hr 01/21/23 05:55 01/22/23 14:53 Normal Saline Iv IV CONT 70 mls/hr .[id number] MARCOS Administration Methylprednisolone Sodium Succinate 40 mg 01/22/23 22:00 Methylprednisolone Sod Succ 125 Mg Vial IV PUSH Q8HR MARCOS Ondansetron HCl 4 mg 01/20/23 23:54 01/22/23 14:52 Ondansetron Inj 4 Mg/2 Ml Vial IV PUSH 4 mg Q4H PRN Administration Nausea And Vomiting Radiology Results: ITS Impressions Abdomen/Pelvis CT 01/20/23 19:04 IMPRESSION: 1. Marked wall thickening and inflammation of the terminal ileum,
--- NOTE | 2023-01-22 18:17 | PM.IMPN ---
Progress Note: A&P Assessment and Plan (1) Sepsis: Qualifiers: Sepsis acute organ dysfunction status: unspecified Sepsis type: sepsis due to unspecified organism Qualified Code(s): A41.9 - Sepsis, unspecified organism Code(s): A41.9 - Sepsis, unspecified organism Status: Acute Assessment and Plan: The patient met sepsis criteria on admission with fever, tachycardia and leukocytosis. Sepsis is due to intra-abdominal abscess associated with terminal ileitis most likely due to Crohn's disease. Patient received 2 L of IV fluid bolus. He was continued on IV fluids due to persistent tachycardia but better now. WBC still trending down. No further fevers. Diet started, Bowel function returning BCx NGTD Continue IV abx. Stop IV fluids (2) Intra-abdominal abscess: Code(s): K65.1 - Peritoneal abscess Status: Acute Assessment and Plan: CT scan on admission showing marked wall thickening and inflammation of the terminal ileum with multiple interloop abscesses up to 4.7cm with moderate volume of ascites. Does not appear to have peritoneal signs. General surgery was consulted and apprecaite their input. Abscess too small to drain Diet advanced per GenSurg Continue empiric antibiotic therapy with Rocephin and Flagyl. (3) Crohn's disease involving terminal ileum: Code(s): K50.00 - Crohn's disease of small intestine without complications Status: Acute Assessment and Plan: Patient has findings concerning for Crohn's disease. Patient will eventually need colonoscopy for further evaluation which is being planned. GI consulted and appreciate theri input. Steroids started. IBD panel pending (4) Pelvic kidney: Code(s): Q63.2 - Ectopic kidney Status: Acute Assessment and Plan: CT shows absent right kidney and a soft tissue density in the right pelvis likely represents a somewhat deformed right kidney. Addendum added to the report to include venous malformation, lymphoma or sarcoma in the differential. Urinalysis was clear. This is probably an incidental finding. Renal function is normal. The study was done with contrast and the left enhances but the pelvic mass does not so if this is a right kidney, it is probably nonfunctioning. Biopsy planned at a later time. Subjective Date/time seen: 01/22/23 18:17 Interval history: 22yo healthy male here for abdominal pain. Abd pain better. No problems overnight. +BMs. no blood or mucous in the stools. Exam Narrative: AF 97.1 118/69 70 16 99% ra Gen - NARD Chest - CTA bilaterally, nml RR CV - RRR S1/S2 Abd - Soft, ND, minimal RLQ pain, +BS Ext - No pedal edema Psych - Nml mood and affect Skin - Warm and dry Objective Data Vital Signs Vital Signs: Vital Signs - 24 hr 01/21/23 20:00 01/21/23 21:40 01/22/23 05:43 Temperature 97.9 F 96.9 F L Pulse Rate 84 81 Respiratory Rate 12 14 Blood Pressure 118/70 125/75 Pulse Oximetry 100 100 Oxygen Delivery Room Air 01/22/23 08:00 01/22/23 14:00 Temperature 97.1 F L Pulse Rate 70 Respiratory Rate 16 Blood Pressure 118/69 Pulse Oximetry 99 Oxygen Delivery Room Air Intake/Output Intake/Output: Intake & Output 01/19/23 01/20/23 01/21/23 01/22/23 23:59 23:59 23:59 23:59 Intake Total 1150 1586 3190 Output Total 2125 450 Balance 1150 -539 2740 Meds/Results Medications: Active Medications Generic Name Dose Route Start Last Admin Trade Name Freq PRN Reason Stop Dose Admin Enoxaparin Sodium 40 mg 01/21/23 09:00 01/22/23 08:48 Enoxaparin 40 Mg/0.4 Ml Syringe SUB-Q 40 mg DAILY MARCOS Administration Ceftriaxone Sodium 1 gm in 50 mls @ 100 mls/hr 01/21/23 20:00 01/21/23 20:40 Rocephin 1 Gm/Ns 50 Ml IVPB Infused Q24H MARCOS Infusion Metronidazole 500 mg in 100 mls @ 100 mls/hr 01/21/23 06:00 01/22/23 14:52 Flagyl 500 Mg/Iso Soln 100 Ml IVPB 100 mls/hr Q8H MARCOS Administration So
[2023-01-22] MEDS: methylPREDNISolone SOD SUCC 125 MG VIAL 40 MG IV PUSH (21:03)
[2023-01-22 22:00] VITALS: BP 113/69; PULSE 70; RESP 18; TEMP 36.3; O2SAT 100
[2023-01-23] MEDS: metroNIDAZOLE 500 MG/ISO 100ML 500 MG/100 ML BAG 100 MG IVPB ×3 (05:43→21:38)
[2023-01-23] MEDS: methylPREDNISolone SOD SUCC 125 MG VIAL 40 MG IV PUSH ×3 (05:44→22:33)
[2023-01-23] MEDS: ONDANSETRON INJ 4 MG/2 ML VIAL IV PUSH ×3 (05:51→21:38)
[2023-01-23 05:55] VITALS: BP 120/62; PULSE 59; RESP 18; TEMP 35.6; O2SAT 99
[2023-01-23 06:29] LABS: Basophils Percent Auto 0.1 % (0.2-1.2); Hematocrit 38.8 % (42.0-52.0); Hemoglobin 12.4 g/dL (14.0-18.0); Immature Granulocyte Absolute 0.13 K/mm3 (0.00-0.031); Immature Granulocyte Percent A 0.9 % (0-0.5); Lymphocytes Absolute Auto 0.87 K/mm3 (0.9-3.2); Lymphocytes Percent Auto 5.8 % (18.3-44.2); Mean Corpuscular Hemoglobin 25.4 pg (26-34); Mean Corpuscular Volume 79.3 fl (80-100); Mean Platelet Volume 9.6 fl (7.4-10.4); Monocytes Absolute Auto 0.1 K/mm3 (0.1-0.6); Monocytes Percent Auto 0.5 % (2.6-8.5); Neutrophils Absolute Auto 13.9 K/mm3 (1.3-6.7); Neutrophils Percent Auto 92.7 % (45.5-73.1); Platelet Count Result 382 k/mm3 (150-375); Red Blood Count 4.89 M/mm3 (4.6-6.20); Red Cell Distribution Width 12.7 % (11.5-14.5)
[2023-01-23 06:50] LABS: Anion Gap 17 mmol/L (8-16); Blood Urea Nitrogen 11 mg/dL (9-20); Calcium 9.3 mg/dL (8.4-10.2); Carbon Dioxide 20 mmol/L (22-30); Chloride 102 mmol/L (98-107); Estimated CRCL calculation 108 ml/min; Estimated Glomerular Filt Rate > 60; Glucose 119 mg/dL (65-110); Potassium 4.2 mmol/L (3.4-5.0); Sodium 139 mmol/L (137-145)
[2023-01-23] MEDS: ENOXAPARIN 40 MG/0.4 ML SYRINGE SUB-Q (09:09)
--- NOTE | 2023-01-23 10:49 | PM.IMPN ---
Progress Note: A&P Assessment and Plan (1) Sepsis: Qualifiers: Sepsis acute organ dysfunction status: unspecified Sepsis type: sepsis due to unspecified organism Qualified Code(s): A41.9 - Sepsis, unspecified organism Code(s): A41.9 - Sepsis, unspecified organism Status: Acute Assessment and Plan: The patient met sepsis criteria on admission with fever, tachycardia and leukocytosis. Sepsis is due to intra-abdominal abscess associated with terminal ileitis most likely due to Crohn's disease. Patient received 2 L of IV fluid bolus. He was continued on IV fluids due to persistent tachycardia but better now. WBC was trending down but higher today due to steroids. No further fevers. Diet started. Bowel function returning. Having a gap metabolic acidosis noted. Partly related to diarrhea. BCx NGTD Continue IV abx. Add NS x 1 liter. Check lactic acid. (2) Intra-abdominal abscess: Code(s): K65.1 - Peritoneal abscess Status: Acute Assessment and Plan: CT scan on admission showing marked wall thickening and inflammation of the terminal ileum with multiple interloop abscesses up to 4.7cm with moderate volume of ascites. Does not appear to have peritoneal signs. General surgery was consulted and apprecaite their input. IR assessed the patient but felt the abscess was too small to drain Diet advanced per GenSurg Continue empiric antibiotic therapy with Rocephin and Flagyl. (3) Crohn's disease involving terminal ileum: Code(s): K50.00 - Crohn's disease of small intestine without complications Status: Acute Assessment and Plan: Patient has findings concerning for Crohn's disease. Patient will eventually need colonoscopy for further evaluation which is being planned. GI consulted and appreciate theri input. Steroids started. IBD panel pending (4) Pelvic kidney: Code(s): Q63.2 - Ectopic kidney Status: Acute Assessment and Plan: CT shows absent right kidney and a soft tissue density in the right pelvis likely represents a somewhat deformed right kidney. Addendum added to the report to include venous malformation, lymphoma or sarcoma in the differential. Urinalysis was clear. This is probably an incidental finding. Renal function is normal. The study was done with contrast and the left enhances but the pelvic mass only slightly enhances to suggest that if this is a right kidney, it is probably nonfunctioning. Discussed with Radiology and felt okay to check NM renal scan. If no function noted in the pelvis mass, then plan for pelvic biopsy Subjective Date/time seen: 01/23/23 10:49 Interval history: 22yo healthy male here for abdominal pain. Abdominal pain better. +BMs that are liquid. No CP. No SOB. Has a dry cough. No n/v. Exam Narrative: AF 96.1 120/62 59 18 99% ra Gen - NARD Chest - CTA bilaterally, nml RR CV - RRR S1/S2 Abd - Soft, ND, NT, +BS Ext - No pedal edema Psych - Nml mood and affect Skin - Warm and dry Objective Data Vital Signs Vital Signs: Vital Signs - 24 hr 01/22/23 14:00 01/22/23 22:00 01/23/23 05:55 Temperature 97.1 F L 97.3 F L 96.1 F L Pulse Rate 70 70 59 L Respiratory Rate 16 18 18 Blood Pressure 118/69 113/69 120/62 Pulse Oximetry 99 100 99 Oxygen Delivery 01/23/23 08:00 Temperature Pulse Rate Respiratory Rate Blood Pressure Pulse Oximetry Oxygen Delivery Room Air Intake/Output Intake/Output: Intake & Output 01/20/23 01/21/23 01/22/23 01/23/23 23:59 23:59 23:59 23:59 Intake Total 1150 1586 3440 100 Output Total 2125 1150 Balance 1150 -539 2290 100 Meds/Results Medications: Active Medications Generic Name Dose Route Start Last Admin Trade Name Freq PRN Reason Stop Dose Admin Enoxaparin Sodium 40 mg 01/21/23 09:00 01/23/23 09:09 Enoxaparin 40 Mg/0.4 Ml Syringe SUB-Q 40 mg DAILY MARCOS Administration Ceftriaxone Sodium 1 gm in 50 mls @
[2023-01-23 11:30] LABS: Lactic Acid Reflex 0.8 mmol/L (0.7-2.0)
[2023-01-23] MEDS: SODIUM CHLORIDE 0.9% IV 1,000 ML 100 ML IV CONT (11:55)
--- NOTE | 2023-01-23 12:01 | PC.NURSE ---
Orders clarified. Lasix to be given pre procedure in AM.
--- NOTE | 2023-01-23 12:49 | WPDGIPROGNO ---
Progress Note: A&P Assessment and Plan (1) Crohn's disease involving terminal ileum: Code(s): K50.00 - Crohn's disease of small intestine without complications Status: Acute Assessment and Plan: intra abdominal abscess too small for drainage per radiology he is responding to abx and doing much better colonoscopy tomorrow to confirm diagnosis HBV/TB status pending- he will need to be on biologics/advance therapy (2) Intra-abdominal abscess: Code(s): K65.1 - Peritoneal abscess Status: Acute Assessment and Plan: responding to medical treatment (3) Abdominal pain: Code(s): R10.9 - Unspecified abdominal pain Status: Acute Assessment and Plan: improved liquid diet (4) Leukocytosis: Code(s): D72.829 - Elevated white blood cell count, unspecified Status: Acute (5) Sepsis: Qualifiers: Sepsis acute organ dysfunction status: unspecified Sepsis type: sepsis due to unspecified organism Qualified Code(s): A41.9 - Sepsis, unspecified organism Code(s): A41.9 - Sepsis, unspecified organism Status: Acute Assessment and Plan: resolved (6) Pelvic mass in male: Code(s): R19.00 - Intra-abdominal and pelvic swelling, mass and lump, unspecified site Status: Acute Assessment and Plan: ? non functional kidney, more studies per primary Subjective Date/time seen: 01/23/23 12:49 Interval history: he is doing better today, has been tolerating diet Review of Systems Review of Systems: All systems reviewed & are unremarkable except as noted in HPI and below Exam Const: General: comfortable and no acute distress HENMT: Face/Nose/Sinus: Normal nares present Eyes: General: appearance normal, both eyes and all related structures Neck: Neck: no JVD Resp: Auscultation: clear to auscultation bilaterally Cardio: Rate: regular rate Rhythm: regular rhythm GI: Inspection: non-distended GI Palp: Yes Soft to palpation and No Guarding due to palpation present (GI) Auscultation: normal bowel sounds Skin: General skin exam: normal color Neuro: General: gait normal Speech: normal speech Extrem: General: normal to inspection Psych: Mental Status: mental status grossly normal Objective Data Vital Signs Vital Signs: Vital Signs - 24 hr 01/22/23 14:00 01/22/23 22:00 01/23/23 05:55 Temperature 97.1 F L 97.3 F L 96.1 F L Pulse Rate 70 70 59 L Respiratory Rate 16 18 18 Blood Pressure 118/69 113/69 120/62 Pulse Oximetry 99 100 99 Oxygen Delivery 01/23/23 08:00 Temperature Pulse Rate Respiratory Rate Blood Pressure Pulse Oximetry Oxygen Delivery Room Air Intake/Output Intake/Output: Intake & Output 01/20/23 01/21/23 01/22/23 01/23/23 23:59 23:59 23:59 23:59 Intake Total 1150 1586 3440 218 Output Total 2125 1150 Balance 1150 -539 2290 218 Meds/Results Medications: Active Medications Generic Name Dose Route Start Last Admin Trade Name Freq PRN Reason Stop Dose Admin Bisacodyl 20 mg 01/23/23 18:00 Bisacodyl 5 Mg Tablet Ec PO 01/23/23 18:01 ONCE ONE Enoxaparin Sodium 40 mg 01/21/23 09:00 01/23/23 09:09 Enoxaparin 40 Mg/0.4 Ml Syringe SUB-Q 40 mg DAILY MARCOS Administration Ceftriaxone Sodium 1 gm in 50 mls @ 100 mls/hr 01/21/23 20:00 01/22/23 20:34 Rocephin 1 Gm/Ns 50 Ml IVPB Infused Q24H MARCOS Infusion Metronidazole 500 mg in 100 mls @ 100 mls/hr 01/21/23 06:00 01/23/23 05:43 Flagyl 500 Mg/Iso Soln 100 Ml IVPB 100 mls/hr Q8H MARCOS Administration Sodium Chloride 1,000 mls @ 100 mls/hr 01/23/23 11:00 01/23/23 11:55 Normal Saline Iv IV CONT 01/23/23 20:59 100 mls/hr .Q10H MARCOS Administration Methylprednisolone Sodium Succinate 40 mg 01/22/23 22:00 01/23/23 05:44 Methylprednisolone Sod Succ 125 Mg Vial IV PUSH 40 mg Q8HR MARCOS Administration Ondansetron HCl 4 mg 01/20/23 23:54 01/23/23 05:51 Ondansetron In
[2023-01-23 14:00] VITALS: BP 128/93; PULSE 76; RESP 14; TEMP 35.6; O2SAT 99
[2023-01-23] MEDS: BISACODYL 5 MG TABLET EC 20 MG PO (18:09)
[2023-01-23] MEDS: polyethylene glycoL 3350 238 GM BOTTLE PO (18:10)
[2023-01-23 21:22] VITALS: BP 126/74; PULSE 73; RESP 18; TEMP 36.4; O2SAT 98
[2023-01-24] MEDS: methylPREDNISolone SOD SUCC 125 MG VIAL 40 MG IV PUSH (13:51)
[2023-01-24 15:14] LABS: NIL 0.02 IU/mL; Quantiferon TB Plus, 1T NEGATIVE (NEGATIVE)
--- NOTE | 2023-01-24 19:26 | PC.NURSE ---
Paper documentation exists on this patient due to [employer] [facility] downtime on 01/24/23 from 0030 to 1930 .
--- NOTE | 2023-01-25 09:53 | SUR.PREOP ---
Paper documentation exists from Endoscopy [facility].
[2023-01-25 12:58] LABS: Hemoglobin 12.9 g/dL (14.0-18.0); Red Blood Count 5.09 M/mm3 (4.6-6.20); White Blood Count 24.8 K/mm3 (4.5-10.0)
[2023-01-25 12:59] LABS: Basophils Percent Auto 0.2 % (0.2-1.2); Eosinophils Percent Auto 0.1 % (0-4.4); Hematocrit 39.2 % (42.0-52.0); Immature Granulocyte Percent A 0.8 % (0-0.5); Lymphocytes Absolute Auto 0.81 K/mm3 (0.9-3.2); Lymphocytes Percent Auto 3.3 % (18.3-44.2); Mean Corpuscular HGB Conc 32.9 g/dl (32-36); Mean Corpuscular Hemoglobin 25.3 pg (26-34); Mean Platelet Volume 9.7 fl (7.4-10.4); Monocytes Absolute Auto 0.5 K/mm3 (0.1-0.6); Monocytes Percent Auto 1.9 % (2.6-8.5); Neutrophils Absolute Auto 23.2 K/mm3 (1.3-6.7); Neutrophils Percent Auto 93.7 % (45.5-73.1); Platelet Count Result 447 k/mm3 (150-375); Red Cell Distribution Width 12.5 % (11.5-14.5)
[2023-01-25 13:00] LABS: Crenated RBC 1+ (NORMAL); Platelet Estimate Adequate (Adequate); Schistocytes None Seen (NORMAL)
[2023-01-25 13:01] LABS: Anion Gap 10 mmol/L (8-16); Blood Urea Nitrogen 11 mg/dL (9-20); Calcium 9.1 mg/dL (8.4-10.2); Carbon Dioxide 22 mmol/L (22-30); Chloride 105 mmol/L (98-107); Estimated CRCL calculation 119 ml/min; Estimated Glomerular Filt Rate > 60; Glucose 163 mg/dL (65-110); Magnesium 1.9 mg/dL (1.6-2.3); Potassium 3.8 mmol/L (3.4-5.0); Sodium 137 mmol/L (137-145)
[2023-01-26 00:01] LABS: Phosphorus 2.5 mg/dL (2.5-4.5)
[2023-01-26 15:48] LABS: ANCA Screen Negative (Negative); Myeloperoxidase Ab <1.0 AI (<1.0); Proteinase-3 Ab <1.0 AI (<1.0); S cerevisiae Ab (IgA) >200.0 U (<=20.0); S cerevisiae Ab (IgG) 55.6 U (<=20.0)
[2023-01-27 03:14] LABS: Hepatitis B Core Ab Total Nonreactive (Nonreactive)
== END 2023-01-24 18:00 | disposition home or self-care (01) | DRG 720 ==
LOC: ANHED 20:03 → ANH3MEDSUR 21:30
PROVIDERS: Emergency Medicine; Internal Medicine; Internal Medicine Gastroenterology; Surgery; Admitting Provider Internal Medicine; Emergency Provider Physician Assistant; PCP Physician Assistant; Visit Provider Student in an Organized Health Care Education/Training Program
PROC: 0DJD8ZZ Inspection of Lower Intestinal Tract, Via Natural or Artificial Opening Endoscopic (ICD-10-PCS; CPT 45378; principal; 2023-01-24 13:45)
DX: A41.9 Sepsis, unspecified organism (principal); K65.1 Peritoneal abscess; K50.014 Crohn's disease of small intestine with abscess; Z20.822 Contact with and (suspected) exposure to COVID-19; R19.00 Intra-abdominal and pelvic swelling, mass and lump, unspecified site; Q63.2 Ectopic kidney
CPT/HCPCS: 36415; 74177; 78707; 80048; 80053; 80069; 81001; 83605; 83690; 83735; 85025; 85027; 85652; 86036; 86140; 86480; 86671; 86704; 86706; 87040; 87340; 87636; 88305; 96361; 96365; 99285; A9270; A9562; J0696; J1650; J2405; J2704; J2930; J7030; Q9967

== ENCOUNTER 2023-02-08 12:21 | Outpatient (CLI) | payer MEDICAID, SELFPAY ==
--- NOTE | ~2023-02-08 | CT_ITS ---
CT of the Pelvis: Indication: Pelvic swelling/mass Technique: 2.5 mm axial scans were obtained through the pelvis following intravenous administration of 100 cc of Omnipaque 350. Dose reduction technique was used on this scan by utilizing automated exp osure control and iterative reconstruction technique. The dose-length product (DLP) was 213.15 mGy-cm . COMPARISON: 01/20/2023 Findings: Again identified is abscess or contained perforation in the right lower quadrant to midabdo men, decreased in extent from prior exam, now measuring up to approximately 3.3 x 2.2 cm in size. The re are decreased surrounding inflammatory changes as compared to prior exam with persistent engorgeme nt of local basilar recta. There is wall thickening of the terminal ileum. There are shotty adjacent lymph nodes in the right lower quadrant region. Urinary bladder unremarkable. Prostate gland and seminal vesicles are unremarkable. No ascites. No ev idence for bowel obstruction. Impression: Mild interval improvement in right lower quadrant abscess, as detailed above. Persistent, though impr vincent, surrounding inflammatory changes. Persistent shotty surrounding right lower quadrant lymph node s. Wall thickening of the terminal ileum suggests underlying Crohn's disease. Reviewed, dictated and finalized at location . Impression: Mild interval improvement in right lower quadrant abscess, as detailed above. P ersistent, though improved, surrounding inflammatory changes. Persistent shotty surrounding right lower quadrant lymph nodes. Wall thickening of the terminal ileum suggests underlying Crohn's disease.
== END 2023-02-08 12:22 | disposition home or self-care (01) ==
PROVIDERS: PCP Family Medicine; Visit Provider Internal Medicine Gastroenterology
DX: K50.00 Crohn's disease of small intestine without complications (principal); R19.00 Intra-abdominal and pelvic swelling, mass and lump, unspecified site
CPT/HCPCS: 72193; Q9967

== ENCOUNTER 2023-02-15 09:07 | Outpatient (CLI) | payer BC, MEDICAID, SELFPAY ==
[2023-02-07 12:12] VITALS: BMI 19.5
--- NOTE | 2023-02-07 12:13 | PC.NURSE ---
Pre Radiology instructions Report to the outpatient [facility] on date 02/15/23 at time 0900 for procedure Time: 1100. YOU MAY BE MONITORED AT HOSPITAL FOR UP TO 4 HOURS AFTER YOUR PROCEDURE. A visitor will be allowed to accompany the patient into the hospital. You and your visitor will be asked to self-screen and do not enter if you have any COVID symptoms. A mask is OPTIONAL within the hospital. Patients are to have no food or drink 6 hours prior to procedure time Driving will be restricted after the procedure, you must have a person to drive you home. Labs will be drawn in preop area and once reviewed, you will be taken to radiology area for procedure. When the procedure is completed, you will be taken to outpatient where you will be monitored for several hours. You may have one visitor in this area. Other than holding anti-coagulants, patient may take other medication(s) as scheduled. Prior to your appointment date patients are instructed to hold anti-coagulants after discussing with ordering provider to stop. If unable to discontinue anti-coagulants please notify radiologist. ? No aspirin or warfarin (Coumadin) for 7 days prior to the procedure. ? No clopidogrel (Plavix), ticagrelor (Brilinta), prasugrel (Effient) or dabigatran (Pradaxa) for 5 days prior to the procedure. ? No rivaroxaban (Xarelto), apixaban (Eliquis), dipyridamole (Aggrenox or Persantine) or cilostazol (Pletal) for 2 days prior to the procedure. Medications to discontinue per physician: N/A Date to take last dose: N/A Please leave all valuables, including medications, at home the day of procedure. The hospital will not accept responsibility for valuables. Wear comfortable, loose fitting clothing.? Follow any additional instructions given to you from ordering provider. Telephone instructions given to TAMMIE BAR and asked if any additional questions and then verbalized understanding. Patient advised to call scheduling provider office or registration scheduling [phone] if any additional questions.
--- NOTE | ~2023-02-15 | CT_ITS ---
EXAMINATION: CT biopsy abdomen percutaneous DATE: 02/15/2023 11:40 INDICATION: Right pelvic mass. TECHNIQUE: The procedure including the risks, benefits, and alternatives was discussed with the patie nt. Risks discussed included bleeding and infection. The patient verbalized understanding of the risk s and agreed to proceed. The skin overlying the right buttock was prepped and draped in usual steril e fashion. Anesthetic was administered with 1% lidocaine subcutaneously. A 16 gauge outer needle wa s advanced under CT guidance into the right perirectal mass. An 18 gauge core biopsy needle was then used to obtain 6 core biopsy specimens. The mA was adjusted according to patient size. Iterative zoraida nstruction technique was employed. The dose-length product was 133.01 mGy-cm. The needle was removed and the entry site was cleaned and dressed. There were no immediate complications. FINDINGS: CT images demonstrate the outer needle tip adjacent to a 7.5 x 3.7 cm right perirectal mass . IMPRESSION: 1. CT-guided core needle biopsy of a right perirectal mass. Reviewed, dictated and finalized at location A.
[2023-02-15 09:24] VITALS: BP 130/69; PULSE 92; RESP 16; TEMP 36.8; O2SAT 100
[2023-02-15 09:51] LABS: INR 0.9; Prothrombin Time 12.6 Seconds (11.1-14.7)
--- NOTE | 2023-02-15 11:45 | SUR.PHASEII ---
1142 arrived from radiology no need to stay per staff per Dr Trujillo [id number] patient dressed IV SL removed dressing applied and walked to door. Denies pain instructed to call scheduling provider if any problems, understanding stated.
== END 2023-02-15 11:49 | disposition home or self-care (01) ==
PROVIDERS: PCP Family Medicine; Referring Provider Surgery; Visit Provider Radiology Diagnostic Radiology
PROC: BW20ZZZ Computerized Tomography (CT Scan) of Abdomen (ICD-10-PCS; CPT 77012; principal; 2023-02-15 11:00)
DX: R19.00 Intra-abdominal and pelvic swelling, mass and lump, unspecified site (principal)
CPT/HCPCS: 36415; 49180; 77012; 85610; 88108; 88184; 88305

== ENCOUNTER 2023-02-26 21:01 | Emergency (ER) | payer BC, MEDICAID, SELFPAY ==
--- NOTE | ~2023-02-26 | CT_ITS ---
CT of the Abdomen and Pelvis: Indication: Abdominal pain Technique: 2.5 mm axial scans were obtained through the abdomen and pelvis following intravenous adm inistration of 100 cc of Omnipaque 350. Dose reduction technique was used on this scan by utilizing a utomated exposure control and iterative reconstruction technique. The dose-length product (DLP) was 2 99.61 mGy-cm. COMPARISON: 02/15/2023 Findings: Scans through the lung bases are unremarkable. The liver, spleen, pancreas, gallbladder, adrenals and kidneys are within normal limits. No evidence of aortic aneurysm. No lymphadenopathy. Wall thickening of the terminal ileum is again noted surrounding inflammatory change. Irregular absce ss or contained perforation in the right lower quadrant, adjacent to the terminal ileum is overall si milar to prior exam, with mildly increased inflammatory changes surrounding it. Enteroenteric fistula through the abscess/perforation is possibly present. Shotty right lower quadrant lymph nodes are aga in present, similar to prior exam. No danilo bowel obstruction identified. Images through the pelvis were performed. Urinary bladder unremarkable. Prostate gland and seminal ve sicles are unremarkable. Stable lobulated, intermediate density, circumscribed mass in the low, poste rior pelvis to the right and the rectum, measuring approximately 7.2 x 3.2 cm in transverse dimension s (axial image 145 for example).. Impression: Left shoulder pain with running inflammatory changes compatible with Crohn's disease. Inflammatory st randing is mildly increased as compared to prior exam. Irregular abscess or contained perforation the right lower quadrant adjacent to the terminal ileum is similar to prior exam, again with mildly increased inflammatory stranding. Possible underlying enter oenteric fistula through the abscess/contained perforation. Stable shotty right lower quadrant lymph nodes, presumably reactive. Stable 7.2 x 3.2 cm circumscribed, lobulated masslike lesion just to the right of the rectum. Correla te with recent biopsy results. Reviewed, dictated and finalized at location M. Impression: Left shoulder pain with running inflammatory changes compatible with Crohn's di sease. Inflammatory stranding is mildly increased as compared to prior exam. Irregular abscess or contained perforation the right lower quadrant adjacent to the terminal ileum is similar to prior exam, again with mildly increased infla mmatory stranding. Possible underlying enteroenteric fistula through the absces s/contained perforation. Stable shotty right lower quadrant lymph nodes, presumably reactive. Stable 7.2 x 3.2 cm circumscribed, lobulated masslike lesion just to the right of the rectum. Correlate with recent biopsy results.
[2023-02-26 21:25] VITALS: BP 116/75; PULSE 136; RESP 16; TEMP 37; O2SAT 97
[2023-02-26 22:27] LABS: Basophils Absolute Auto 0.1 K/mm3 (0.0-0.1); Basophils Percent Auto 0.3 % (0.2-1.2); Eosinophils Absolute Auto 0.1 K/mm3 (0-0.3); Eosinophils Percent Auto 0.5 % (0-4.4); Hematocrit 43.6 % (42.0-52.0); Hemoglobin 13.9 g/dL (14.0-18.0); Immature Granulocyte Absolute 0.11 K/mm3 (0.00-0.031); Immature Granulocyte Percent A 0.6 % (0-0.5); Lymphocytes Absolute Auto 1.69 K/mm3 (0.9-3.2); Mean Corpuscular HGB Conc 31.9 g/dl (32-36); Mean Corpuscular Hemoglobin 25.6 pg (26-34); Mean Corpuscular Volume 80.4 fl (80-100); Monocytes Absolute Auto 1.7 K/mm3 (0.1-0.6); Monocytes Percent Auto 9.3 % (2.6-8.5); Neutrophils Percent Auto 80.3 % (45.5-73.1); Platelet Count Result 280 k/mm3 (150-375); Red Blood Count 5.42 M/mm3 (4.6-6.20); Red Cell Distribution Width 15.7 % (11.5-14.5); White Blood Count 18.7 K/mm3 (4.5-10.0)
[2023-02-26 22:37] LABS: Alanine Aminotransferase 30 U/L (6-50); Alkaline Phosphatase 67 U/L (38-126); Anion Gap 7 mmol/L (8-16); Aspartate Amino Transferase 23 U/L (17-59); Bilirubin,Total 0.7 mg/dL (0.2-1.3); Blood Urea Nitrogen 14 mg/dL (9-20); Calcium 9.1 mg/dL (8.4-10.2); Carbon Dioxide 33 mmol/L (22-30); Chloride 96 mmol/L (98-107); Estimated CRCL calculation 88 ml/min; Estimated Glomerular Filt Rate > 60; Glucose 108 mg/dL (65-110); Lipase 133 U/L (23-300); Potassium 3.3 mmol/L (3.4-5.0); Sodium 136 mmol/L (137-145)
[2023-02-26 22:39] LABS: Appearance Urine Clear (Clear); Bacteria Urine None Seen /hpf; Bilirubin Urine Negative (Negative); Blood Urine Trace (Negative); Color Urine Yellow (Yellow); Glucose Urine UA Negative (Negative); Ketones Urine Trace mg/dL (Negative); Leukocyte Esterase Ur Negative LEU/UL (Negative); Nitrate Urine Negative (Negative); Non Pathogenic Casts 0-2; Protein Urine 1+ mg/dL (Negative); RBC Urine 0-2 /hpf (0-2); Specific Grav Ur 1.021 (1.001-1.035); Squamous Epithelial Cell Urine None seen /hpf (Few); WBC Urine 0-5 /hpf
[2023-02-26 22:43] LABS: Add Urine Microscopic? YES
--- NOTE | 2023-02-26 22:45 | PC.NURSE ---
Report given to Yeni Vazquez RN
[2023-02-26 22:56] VITALS: BP 130/98; PULSE 102; RESP 10; TEMP 37.4; O2SAT 100
[2023-02-26] MEDS: SODIUM CHLORIDE 0.9% IV 2,000 ML 999 ML IV CONT (23:05)
--- NOTE | 2023-02-26 23:05 | ED.ABDPAIN ---
HPI - Abdominal Pain General Chief Complaint: Abdominal Pain Stated Complaint: abd pain Time Seen by Provider: 02/26/23 22:38 History of Present Illness HPI narrative: This is a 22-year-old male with past history of Crohn's disease, who presents to the emergency department complaining of right lower quadrant abdominal pain. He states earlier today, he noticed sharp abdominal pain rated 5/10 that radiated towards the back. He also complains of some subjective fevers. He was recently seen and diagnosed with abdominal abscesses, treated with antibiotics and steroids. He recently finished his oral steroids 3 days ago. He complains nausea, vomiting, diarrhea or bleeding from any source. Related Data Home Medications Medication Instructions Recorded Confirmed prednisone 20 mg tablet 20 mg PO DAILY 01/31/23 02/07/23 Allergies Allergy/AdvReac Type Severity Reaction Status Date / Time Penicillins Allergy Mild RASH Verified 02/15/23 09:19 Review of Systems Review of Systems: CONSTITUTIONAL: Subjective fevers denies chills, or sweats. CARDIOVASCULAR: Denies chest pain, palpitations, or edema. RESPIRATORY: Denies cough or dyspnea. GASTROINTESTINAL: Right lower quadrant abdominal pain denies nausea, vomiting, or diarrhea. GENITOURINARY: Denies dysuria or hematuria. SKIN: Denies rash or itching. MUSCULOSKELETAL: Denies back pain, joint pain, or myalgia. NEUROLOGIC: Denies headache, numbness, dizziness, or weakness. PSYCHIATRIC: Denies anxiety or depression. [facility] Past Medical History Medical History Crohn's disease involving terminal ileum Family History Family History Father Healthy adult Mother Healthy adult Sibling Healthy adult Social History Social History Social History: He recently graduated from the [email or web address] with associate's degree in film and editing. He uses marijuana edibles on occasion. He is a lifelong nonsmoker. He occasionally drinks alcohol in moderation. He lives at home with his parents. Smoking status: Never smoker Alcohol intake: current Drinks per week: 1 Substance use: never Lack of Transportation: No Lack of Food: Never True Current Housing: I Have Housing Concerned About Future Housing: No Difficulty Paying Gas/Electric Bills: No Difficulty Paying for Meds: No Currently Unemployed: No Education: Associate Degree Difficulty w/ Childcare or Family Care: No Living arrangements: with family Occupation/Education: unemployed Gender identity (if verbalized by the patient): Male Sexual Orientation (if Verbalized by the Patient): Straight or Heterosexual Spiritual care concerns: No Exam Narrative: GENERAL: Well-developed, well-nourished, and in no acute distress. HEAD: Normocephalic, atraumatic. EYES: PERRLA and EOMI. ENT: Nares clear, no rhinorrhea or epistaxis. Mucous membranes moist. Oropharynx without tonsillar hypertrophy exudate or other lesions. NECK: Supple. No JVD CHEST: Clear to auscultation. No respiratory distress. No wheezes rales or rhonchi HEART: Tachycardic with regular rhythm. No murmur heard. Normal peripheral pulses. ABDOMEN: Soft, nontender, nondistended, normal active bowel sounds. EXTREMITIES: Normal range of motion. No edema. SKIN: Warm, dry, no rash. NEURO: No focal deficits. Alert and oriented x3. PSYCH: Normal mood and affect. Course Course Emergency Course: 23:08 - White blood cell count elevated to 18.7 with hemoglobin of 13.9. Review of prior CBCs shows the patient had a white count of 24 1 month ago. Chemistries demonstrate mild hyponatremia of 136 and a potassium of 3.3. Chemistries otherwise unremarkable. UA demonstrates mild protein and ketones but is otherwise unremarkable. The patient's abdominal exam is not concerning
[2023-02-27 00:49] VITALS: BP 140/77; PULSE 90; RESP 12; O2SAT 100
[2023-02-27 01:45] VITALS: BP 132/76; PULSE 85; RESP 11; O2SAT 100
[2023-02-27] MEDS: metroNIDAZOLE 250 MG TABLET 500 MG PO (02:37)
[2023-02-27] MEDS: CIPROFLOXACIN 500 MG TAB PO (02:37)
== END 2023-02-27 02:44 | disposition home or self-care (01) ==
PROVIDERS: Emergency Provider Preventive Medicine Aerospace Medicine; PCP Family Medicine
DX: K65.1 Peritoneal abscess (principal); R10.31 Right lower quadrant pain; K50.90 Crohn's disease, unspecified, without complications
CPT/HCPCS: 36415; 74177; 80053; 81001; 83690; 85025; 96360; 96361; 99284; A9270; J7030; Q9967

== ENCOUNTER 2023-03-09 09:05 | Outpatient (CLI) | payer BC, MEDICAID, SELFPAY ==
--- NOTE | ~2023-03-09 | XR_ITS ---
EXAMINATION: XR small bowel follow through DATE: 03/09/2023 11:25 INDICATION: Crohn's disease. Assess for fistulas TECHNIQUE: Commercial Lender radiograph(s) of the abdomen was/were obtained. Oral contrast was administered, and sequential radiographs of the abdomen were obtained until oral contrast was noted to be in the proxi mal colon. Spot fluoroscopic images of the small bowel were obtained. Fluoroscopy exposure time was 3 .8 minutes. A total of 7 overhead radiographs and 22 fluoroscopic images were recorded. COMPARISON: CT dated 02/27/2023 FINDINGS: Transit time from the stomach to proximal colon was approximately 1 hour and 30 minutes. There is an irregular narrowed appearance to the terminal ileum. Several subtle linear extension of contrast are seen in the between the terminal ileum, cecum and loops of more proximal ileum in the right lower mandie drant consistent with enteroenteric and coloenteric fistulae. No larger localized collections of extr aluminal collection to suggest communication to an abscess. There is normal caliber and mucosal fold pattern throughout the more proximal small bowel. No dilated small bowel to suggest obstruction. IMPRESSION: 1. 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 Reviewed, dictated and finalized at location A. IMPRESSION: 1. 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
== END 2023-03-09 09:06 | disposition home or self-care (01) ==
PROVIDERS: PCP Family Medicine; Visit Provider Internal Medicine Gastroenterology
DX: K50.913 Crohn's disease, unspecified, with fistula (principal); R19.00 Intra-abdominal and pelvic swelling, mass and lump, unspecified site
CPT/HCPCS: 74250

== ENCOUNTER 2023-06-26 08:06 | Outpatient (CLI) | payer BC, MEDICAID, SELFPAY ==
--- NOTE | ~2023-06-26 | XR_ITS ---
EXAMINATION: XR small bowel follow through DATE: 06/26/2023 09:41 INDICATION: Fistula of the intestine TECHNIQUE: Cloth Wire Weaver radiograph(s) of the abdomen was/were obtained. Oral contrast was administered, and sequential radiographs of the abdomen were obtained until oral contrast was noted to be in the proxi mal colon. Spot fluoroscopic images of the small bowel were obtained. Fluoroscopy exposure time was 2 .2 minutes. The DAP for this procedure was 15.589 Gycm2. COMPARISON: 03/01/2023 FINDINGS: Cloth Wire Weaver image demonstrates an unremarkable bowel gas pattern. Transit time from the stomach t o proximal colon was approximately 45 minutes. There is normal caliber and mucosal fold pattern throu ghout the small bowel. Terminal ileum is normal. No tethering or abnormal mass effect observed upon t he small bowel with real-time fluoroscopy. The previously identified fistulous of the right lower mandie drant are not definitely identified. IMPRESSION: 1. No definite evidence of persistent enterocolic fistula in the right lower quadrant. Reviewed, dictated and finalized at location A. 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 No definite evidence of persistent enterocolic fistula in the right lower qu adrant.
== END 2023-06-26 08:07 | disposition home or self-care (01) ==
LOC: ANHIMG 08:10
PROVIDERS: PCP Family Medicine; Visit Provider Surgery
DX: K50.013 Crohn's disease of small intestine with fistula (principal)
CPT/HCPCS: 74250

== ENCOUNTER 2023-09-26 16:14 | Outpatient (CLI) | payer BC, MEDICAID, SELFPAY ==
[2023-09-26 16:44] LABS: Hematocrit 49.1 % (42.0-52.0); Hemoglobin 16.2 g/dL (14.0-18.0); Mean Corpuscular Hemoglobin 26.6 pg (26-34); Mean Corpuscular Volume 80.8 fl (80-100); Platelet Count Result 261 k/mm3 (150-375); Red Blood Count 6.08 M/mm3 (4.6-6.20); Red Cell Distribution Width 13.3 % (11.5-14.5); White Blood Count 8.9 K/mm3 (4.5-10.0)
[2023-09-26 17:02] LABS: Alanine Aminotransferase 58 U/L (6-50); Albumin Level 4.5 g/dL (3.5-5.1); Alkaline Phosphatase 105 U/L (38-126); Anion Gap 7 mmol/L (8-16); Aspartate Amino Transferase 47 U/L (17-59); Bilirubin,Total 0.7 mg/dL (0.2-1.3); Blood Urea Nitrogen 17 mg/dL (9-20); CRP 0.6 mg/dL (<1.0); Calcium 9.7 mg/dL (8.4-10.2); Carbon Dioxide 30 mmol/L (22-30); Chloride 101 mmol/L (98-107); Estimated Glomerular Filt Rate > 60; Glucose 113 mg/dL (65-110); Potassium 3.9 mmol/L (3.4-5.0); Sodium 138 mmol/L (137-145)
[2023-09-26 17:15] LABS: Erythrocyte Sedimentation Rate 3 mm/hr (0-20)
== END 2023-09-26 16:15 | disposition home or self-care (01) ==
LOC: ANHLAB 16:16
PROVIDERS: PCP Family Medicine; Visit Provider Internal Medicine Gastroenterology
DX: K50.013 Crohn's disease of small intestine with fistula (principal)
CPT/HCPCS: 36415; 80053; 83993; 85027; 85652; 86140

== ENCOUNTER 2023-09-27 07:21 | Outpatient (NON) | payer BC, MEDICAID, SELFPAY ==
[2023-10-04 19:22] LABS: Calprotectin, Stool 29 mcg/g
== END 2023-09-27 07:22 | disposition home or self-care (01) ==
LOC: ANHLAB 07:23
PROVIDERS: PCP Family Medicine; Visit Provider Internal Medicine Gastroenterology
DX: K50.013 Crohn's disease of small intestine with fistula (principal)
CPT/HCPCS: 83993

== ENCOUNTER 2024-01-11 00:42 | Day surgery (SDC) | payer BC, MEDICAID, SELFPAY ==
[2023-12-26 09:36] VITALS: BMI 21.2
[2024-01-11 08:34] VITALS: BP 147/83; PULSE 114; RESP 18; TEMP 36.4; O2SAT 99; BMI 22.1
[2024-01-11] MEDS: LACTATED RINGERS 1,000 ML 150 ML IV CONT (08:51)
--- NOTE | 2024-01-11 09:09 | WPDANESEPPF ---
Anes - Initial Pre Proc Eval Procedure: Operation Date: 01/11/24 10:00 Proposed Procedures p Colonoscopy - Timur Barbour MD Date/Time: 01/11/24 09:09 Surgeon: Timur Barbour MD Pre Op Diagnosis: Crohns disease,Fistula Of Intestine Patient Data Age: 23 Gender: M Height: 1.85 m Weight: 76.1 kg Last Vital Signs Temp 36.4 C L 01/11/24 08:34 Pulse 114 H 01/11/24 08:34 Resp 18 01/11/24 08:34 BP 147/83 H 01/11/24 08:34 Pulse Ox 99 01/11/24 08:34 O2 Del Method Room Air 01/11/24 08:34 Allergies Allergy/AdvReac Type Severity Reaction Status Date / Time Penicillins Allergy Mild RASH Verified 01/11/24 08:41 Home Medications Medication Instructions Recorded Confirmed Type escitalopram oxalate 10 mg tablet 10 mg PO DAILY #30 tabs 01/31/23 01/11/24 Rx multivitamin 1 tablet PO DAILY 03/22/23 01/11/24 History ustekinumab 90 mg/mL subcutaneous 90 mg subcut .every 8 weeks #1 mL 07/25/23 01/11/24 Rx syringe (Stelara) Patient hx anesthesia problems: none Family hx anesthesia problems: none Results Review: All pre-operative results and documents have been reviewed as part of the pre-operative evaluation. [facility] Past Medical History Medical History Colonic fistula Crohn's disease involving terminal ileum Crohn's disease of ileum Depression with anxiety Surgical History Surgical History History of colonoscopy History of esophagogastroduodenoscopy (EGD) Family History Family History Father Healthy adult Diabetes mellitus Mother Healthy adult Hypertension Sibling Healthy adult Social History Social History Social History: He recently graduated from the [employer] with associate's degree in film and editing. He uses marijuana edibles on occasion. He is a lifelong nonsmoker. He occasionally drinks alcohol in moderation. He lives at home with his parents. Smoking status: Never smoker Alcohol intake: current Alcohol use details: socially Substance use: current Substance use type: marijuana Lack of Transportation: No Lack of Food: Never True Current Housing: I Have Housing Concerned About Future Housing: No Difficulty Paying Gas/Electric Bills: No Difficulty Paying for Meds: No Currently Unemployed: No Education: Associate Degree Difficulty w/ Childcare or Family Care: No Living arrangements: with family Occupation/Education: unemployed Gender identity (if verbalized by the patient): Male Sexual Orientation (if Verbalized by the Patient): Straight or Heterosexual Spiritual care concerns: No Anes - Eval Final PreProcedure Day of Procedure 01/11/24 09:09 Patient weight: normal Heart: regular rate and rhythm Lungs: clear to auscultation Airway: Mallampati scale class II Neurological: alert and oriented Last oral intake: >/= 8 hours ASA classification: III Emergent: no Anesthetic plan: proceed Anesthesia type and monitoring: general GIVS and standard monitoring Results Review: All pre-operative results and documents have been reviewed as part of the pre-operative evaluation. Informed Consent: The patient's anesthetic plan and its attendant risks and benefits were discussed with the patient/family/POA. Questions were solicited and answers provided to the satisfaction of the patient/family/POA.
--- NOTE | 2024-01-11 09:21 | PM.HPGS ---
History of Present Illness History of Present Illness Consent: Risks, benefits, and alternatives have been discussed and questions answered. Patient agrees to proceed with procedure. Chief complaint: Crohns disease,Fistula Of Intestine Narrative: Enrique Shukla is a 23 year old male here for colonoscopy, admitted 01/2023 with abdominal pain and?CT scan showed wall thickening and inflammation of the terminal ileum, likely Crohn's disease which was confirmed by colonoscopy that showed ileitis, unable to advance scope. Multiple interloop abscesses measuring up to 4.7 cm, treated with antibiotics. A repeat CT scan showed irregular abscess, possible underlying enteroenteric fistula, started on stelara and remarkably better, repeat imaging no more abscess. Review of Systems Review of Systems: All systems reviewed & are unremarkable except as noted in HPI and below PMFSH Past Medical History Medical History Colonic fistula Crohn's disease involving terminal ileum Crohn's disease of ileum Depression with anxiety Surgical History Surgical History History of colonoscopy History of esophagogastroduodenoscopy (EGD) Family History Family History Father Healthy adult Diabetes mellitus Mother Healthy adult Hypertension Sibling Healthy adult Social History Social History Social History: He recently graduated from the [employer] with associate's degree in film and editing. He uses marijuana edibles on occasion. He is a lifelong nonsmoker. He occasionally drinks alcohol in moderation. He lives at home with his parents. Smoking status: Never smoker Alcohol intake: current Alcohol use details: socially Substance use: current Substance use type: marijuana Lack of Transportation: No Lack of Food: Never True Current Housing: I Have Housing Concerned About Future Housing: No Difficulty Paying Gas/Electric Bills: No Difficulty Paying for Meds: No Currently Unemployed: No Education: Associate Degree Difficulty w/ Childcare or Family Care: No Living arrangements: with family Occupation/Education: unemployed Gender identity (if verbalized by the patient): Male Sexual Orientation (if Verbalized by the Patient): Straight or Heterosexual Spiritual care concerns: No Meds Home Medications and Allergies Home Medications Medication Instructions Recorded Confirmed Type escitalopram oxalate 10 mg tablet 10 mg PO DAILY #30 tabs 01/31/23 01/11/24 Rx multivitamin 1 tablet PO DAILY 03/22/23 01/11/24 History ustekinumab 90 mg/mL subcutaneous 90 mg subcut .every 8 weeks #1 mL 07/25/23 01/11/24 Rx syringe (Stelara) Allergies Allergy/AdvReac Type Severity Reaction Status Date / Time Penicillins Allergy Mild RASH Verified 01/11/24 08:41 Vital Signs Vital Signs - 24 hr 01/11/24 08:34 Temperature 97.5 F L Pulse Rate 114 H Respiratory Rate 18 Blood Pressure 147/83 H Pulse Oximetry 99 Oxygen Delivery Room Air Exam Const: General: comfortable and no acute distress HENMT: Face/Nose/Sinus: Normal nares present Eyes: General: appearance normal, both eyes and all related structures Neck: Neck: no JVD Resp: Auscultation: clear to auscultation bilaterally Cardio: Rate: regular rate Rhythm: regular rhythm GI: Inspection: non-distended GI Palp: Yes Soft to palpation Skin: General skin exam: normal color Neuro: General: gait normal Speech: normal speech Extrem: General: normal to inspection Psych: Mental Status: mental status grossly normal Assessment and Plan Assessment and plan (1) Crohn's disease of ileum: Qualifiers: Digestive disease complication type: with fistula Qualified Code(s): K50.013 - Crohn's disease of small
[2024-01-11 09:40] VITALS: BP 101/66; PULSE 85; RESP 21; O2SAT 98
[2024-01-11 09:50] VITALS: BP 129/76; PULSE 85; RESP 20; O2SAT 98
[2024-01-11 10:00] VITALS: BP 135/69; PULSE 86; RESP 17; O2SAT 100
== END 2024-01-11 10:09 | disposition home or self-care (01) ==
PROVIDERS: PCP Family Medicine; Visit Provider Internal Medicine Gastroenterology
PROC: 0DJD8ZZ Inspection of Lower Intestinal Tract, Via Natural or Artificial Opening Endoscopic (ICD-10-PCS; CPT 45378; principal; 2024-01-11 10:00)
DX: K50.90 Crohn's disease, unspecified, without complications (principal); K64.8 Other hemorrhoids; Z79.620 Long term (current) use of immunosuppressive biologic; F12.90 Cannabis use, unspecified, uncomplicated
CPT/HCPCS: 45380; 88305; J2704; J7120

== ENCOUNTER 2024-03-27 15:49 | Outpatient (CLI) | payer BC, MEDICAID, SELFPAY ==
[2024-03-27 16:15] LABS: Hematocrit 49.5 % (42.0-52.0); Hemoglobin 16.6 g/dL (14.0-18.0); Mean Corpuscular HGB Conc 33.5 g/dl (32-36); Mean Corpuscular Hemoglobin 27.2 pg (26-34); Mean Platelet Volume 9.7 fl (7.4-10.4); Platelet Count Result 303 k/mm3 (150-375); Red Blood Count 6.11 M/mm3 (4.6-6.20); Red Cell Distribution Width 13.9 % (11.5-14.5); White Blood Count 8.5 K/mm3 (4.5-10.0)
[2024-03-27 16:31] LABS: Alanine Aminotransferase 45 U/L (6-50); Albumin Level 5.1 g/dL (3.5-5.1); Alkaline Phosphatase 100 U/L (38-126); Anion Gap 13 mmol/L (4-12); Aspartate Amino Transferase 33 U/L (17-59); Bilirubin,Total 0.7 mg/dL (0.2-1.3); Blood Urea Nitrogen 17 mg/dL (9-20); CRP < 0.5 mg/dL (<1.0); Calcium 9.9 mg/dL (8.4-10.2); Carbon Dioxide 29 mmol/L (22-30); Chloride 96 mmol/L (98-107); Estimated Glomerular Filt Rate > 60; Glucose 94 mg/dL (65-110); Potassium 4.5 mmol/L (3.4-5.0); Sodium 138 mmol/L (137-145)
[2024-03-27 16:52] LABS: Erythrocyte Sedimentation Rate 6 mm/hr (0-20)
[2024-03-27 17:30] LABS: Folic Acid 8.5 ng/mL (2.76->20)
[2024-03-27 18:31] LABS: Hepatitis B Surface Antigen Negative (Negative)
[2024-03-27 18:37] LABS: HAV RESULT Negative (Negative); Hepatitis B Core IgM Result Negative (Negative)
[2024-03-27 18:50] LABS: Hepatitis B Surface Anti Res Positive; Hepatitis C Virus Antibody Negative (Negative)
[2024-03-27 20:35] LABS: Iron 167 ug/dL (49-181)
[2024-03-27 20:44] LABS: Percent Iron Saturation 35 % (20-50)
[2024-03-29 02:18] LABS: Hepatitis B Core Ab Total NON-REACTIVE (NON-REACTIVE)
[2024-04-01 10:04] LABS: Vitamin D 1,25 (OH)2 Total 30 pg/mL (18-72); Vitamin D2 1,25 (OH)2 <8 pg/mL; Vitamin D3 1,25 (OH)2 30 pg/mL
[2024-04-02 10:23] LABS: NIL 0.03 IU/mL; Quantiferon TB Plus, 1T NEGATIVE (NEGATIVE); TB2-NIL 0.02 IU/mL
== END 2024-03-27 15:50 | disposition home or self-care (01) ==
LOC: ANHLAB 15:51
PROVIDERS: PCP Family Medicine; Visit Provider Nurse Practitioner
DX: K50.00 Crohn's disease of small intestine without complications (principal); K92.1 Melena
CPT/HCPCS: 36415; 80053; 80074; 82607; 82652; 82728; 82746; 83540; 83550; 83993; 85027; 85652; 86140; 86480; 86704; 86706

== ENCOUNTER 2024-03-28 11:59 | Outpatient (NON) | payer BC, MEDICAID, SELFPAY ==
[2024-04-04 19:03] LABS: Calprotectin, Stool 35 mcg/g
== END 2024-03-28 12:00 | disposition home or self-care (01) ==
LOC: ANHLAB 12:01
PROVIDERS: PCP Family Medicine; Visit Provider Nurse Practitioner
DX: K50.00 Crohn's disease of small intestine without complications (principal); K92.1 Melena
CPT/HCPCS: 83993

== ENCOUNTER 2024-10-08 09:32 | Outpatient (CLI) | payer BC, MEDICAID, SELFPAY ==
--- OUTSIDE RECORDS SUMMARY | 2024-10-08 10:31 | XMS_ITS | Clinical Summary ---
Author Organization [address] Address [address] [place] [id number] Care Team Providers Care Division Road Supervisor Name Role Phone No, Physician Primary Care Provider [phone] Allergies Active Allergy Reactions Criticality Noted Date Comments Penicillins Rash Medium 03/11/2015 Medications Stelara injection 07/27/2023 Active escitalopram (LEXAPRO) 10 mg tablet Take 1 tablet (10 mg total) by mouth daily 09/26/2023 Active Active Problems No known active problems Social History Tobacco Use Types Packs/Day Years Used Date Smoking Tobacco: Never Assessed Sex and Gender Information Value Date Recorded Sex Assigned at Not on file Legal Sex Male 5:34 PM INDEXER Gender Identity Not on file Sexual Orientation Not on file Obstetrics History Last Filed Vital Signs Vital Sign Reading Time Taken Comments Blood Pressure 119/84 10/07/2023 6:20 PM INDEXER Pulse 103 10/07/2023 6:20 PM INDEXER Temperature 36.3 C (97.4 F) 10/07/2023 6:20 PM INDEXER Respiratory Rate 16 10/07/2023 6:20 PM INDEXER Oxygen Saturation 98% 10/07/2023 6:20 PM INDEXER Inhaled Oxygen Concentration - - Weight 73.5 kg (162 lb) 10/07/2023 6:20 PM INDEXER Height 185.4 cm (6' 1 ) 10/07/2023 6:20 PM INDEXER Body Mass Index 21.37 10/07/2023 6:20 PM INDEXER Plan of Treatment Health Maintenance Due Date Last Done Comments Depression Screening 1999 Hepatitis C Screening 1999 HPV Vaccines (1 - Male 3-dos e series) 12/25/2014 Regular Well Visit/Exam 18-64 12/25/2017 DTaP/Tdap/Td Vaccine (7 - Td or Tdap) 03/06/2021 03/06/2011, 02/02/2005, 07/01/2001, Additional history exists Covid-19 Vaccine (2023-2 5 season) 2024 08/19/2021, 12/02/2020, 11/11/2020 Influenza Vaccine (#1) 2024 06/23/2014 Hepatitis B Screening Completed 10/05/2000 , 01/30/2000, 1999 Pneumococcal vaccine <65 Completed 001, 07/03/2000, 05/03/2000, Additional history exists Varicella Vaccines Completed 03/06/2011, 12/31/2000 [place] Care Teams Division Road Supervisor Relationship Specialty Start Date End Date No, Physician PCP - General 10/07/23
--- OUTSIDE RECORDS SUMMARY | 2024-10-08 10:31 | XMS_ITS | Referral Summary ---
Author Organization [facility] Address [address] [place] [address] Care Team Providers Care Agency Operator Name Role Phone Unavailable Primary Care Provider Unavailabl e Source Comments [facility],non-owned Affiliates and Associated Physician Practices is amultiple site organization consisting of ambulatory clinics and hospital sitesin [place], [place], [place] and [place]. This disclosure is being madepursuant to the Care Everywhere program and may not contain all information available regarding this patient. Last updated 18.[facility] Allergies Active Allergy Reactions Criticality Noted Date Comments Penicillins Rash Low 03/11/2015 Medications * Be aware that medications may not be up to date on this document. Alwaysverify current medications with the patient. Medication Sig Dispensed Refills Start Date End Date Status lansoprazole (PREVACID) 30 MG capsule 1 capsule daily before breakfast 30 capsule 4 06/06/2017 Active lansoprazole (PREVACID) 30 MG capsule TAKE 1 CAPSULE BY MOUTH DAILY BEFORE BREAKFAST 90 capsule 03/26/2018 Active Active Problems Problem Noted Date Diagnosed Date Acute gastritis 05/11/2017 Hematemesis 05/08/2017 Right Groin pain 03/11/2015 Social History Tobacco Use Types Packs/Day Years Used Date Smoking Tobacco: Never Smokeless Tobacco: Never Sex and Gender Information Value Date Recorded Sex Assigned at Not on file Gender Identity Not on file Sexual Orientation Not on file Last Filed Vital Signs Vital Sign Reading Time Taken Comments Blood Pressure 110/64 07/12/2017 6:51 PM SKI PATROLLER Pulse 114 07/12/2017 6:51 PM SKI PATROLLER Temperature 36.9 C (98.4 F) 07/12/2017 6:51 PM SKI PATROLLER Respiratory Rate 16 07/12/2017 6:51 PM SKI PATROLLER Oxygen Saturation 97% 07/12/2017 6:51 PM SKI PATROLLER Inhaled Oxygen Concentration - - Weight 63.5 kg (140 lb) 07/12/2017 6:51 PM SKI PATROLLER Height 180.3 cm (5' 11 ) 07/12/2017 6:51 PM SKI PATROLLER Body Mass Index 19.53 07/12/2017 6:51 PM SKI PATROLLER Functional Status Functional Status Response Date of Assess ment Is person deaf or have serious hearing difficult y? No 05/11/2017 Is person blind or have serious difficulty seein g? No 05/11/2017 Does person have serious dif ficulty walking/climbing stairs? No 05/11/2017 Does person have difficulty dressing/bathing? No 05/11/2017 Does person have difficulty doing errands alone? No 05/11/2017 Cognitive Status Response Date of Assessm ent Does person have difficulty concentrating/remembering/making decisions? No 05/11/2017 Plan of Treatment Not on file ENRIQUE SHUKLA Personal/Family [address] [place] [address] ENRIQUE SHUKLA Personal/Family [address] [place] [address] ENRIQUE SHUKLA Personal/Family [address] [place] [address] ENRIQUE SHUKLA Personal/Family Spouse [address] [facility] [place] [address]
--- OUTSIDE RECORDS SUMMARY | 2024-10-08 10:32 | XMS_ITS | Encounter Summary ---
Author Organization [facility] Address [address] [place] [address] Care Team Providers Care Cat Wagon Operator Name Role Phone Abdiel Marte MD Primary Care Provider [phone] Encounter Details Date Type Department Care Team (Late st Contact Info) Description 02/15/2023 Lab Requisition [facility] - Pathology Lab [address] [place] [address] Duke Dorantes MD [address] [place] [phone] Intra-abdominal and pelvic swelling, mass and lump, unspecified site Social History Tobacco Use Types Packs/Day Years Used Date Smoking Tobacco: Never Smokeless Tobacco: Never Sex and Gender Information Value Date Recorded Sex Assigned at Not on file Gender Identity Not on file Sexual Orientation Not on file documented as of this encounter Functional Status Functional Status Response Date of [...] person have difficulty concentrating/remembering/making decisions? No 05/11/2017 documented as of this encounter Plan of Treatment Not on file documented as of this encounter Procedures Procedure Name Priority Date/Time Associated Diagnosis Comments FLOW CYTOMETRY TISSUE PANEL Routine 02/15/2023 11:32 AM CDT Intra-abdominal and pelvic swelling, mass and lump, unspecified site documented in this encounter Results * FLOW CYTOMETRY TISSUE PANEL (02/15/2023 11:32 AM CDT) Case Report Flow Cytometry Case: [id number] Authorizing Provider: Duke Dorantes MD Collected: 02/15/2023 11:32 AM Ordering Location: [facility] Pathology Lab Received: 02/15/2023 05:02 PM Pathologist: Teresa Mckenzie MD Specimen: Lymph Node, RIGHT ABDOMEN 02/15/2023 5:38 PM CDT [facility] Final Diagnosis Lymph node, right abdomen, flow cytometric immunophenotypic analysis: - Insufficient hematopoietic cells for analysis. - See interpretation. 02/15/2023 5:38 PM CDT [facility] Flow Cytometry Interpretation Preliminary characterization of the right abdominal lymph node specimen demonstrates too few hematopoietic cells for flow cytometric analysis. A cytospin prepared from the flow cytometry specimen is reviewed for software quality assurance engineer purposes. Flow cytometry is not performed. 02/15/2023 5:38 PM T [facility] PATH[facility] LAB Flow Cytometry Results Too few hematopoietic cells for flow cytometric analysis. 02/15/2023 5:38 PM CDT [facility] Reason for test Intra-abdominal and pelvic swelling, mass and lump, unspecified site 02/15/2023 5:38 PM CDT [facility] Client Specimen ID # [id number] 02/15/2023 5:38 PM T [facility] Pathologist Location at [facility] 02/15/2023 5:38 PM T [facility] Disclaimer Test performed at [facility], [address] [place] [address], [address]. *The established laboratory minimum viability is 70%. Values below the minimum may result in the failure to find an abnormal population of cells. This test was developed and its performance characteristics determined by the Flow Cytometry Laboratory. It has not been cleared by the [place] Food and Drug Administration (FDA). The FDA has determined that such clearance or approval is not necessary. This test is used for clinical purposes. It should not be regarded as investigational or for research. This laboratory is regulated under the Clinical Laboratory Improvement Amendments of 1998 (CLIA) as a qualified to perform high complexity clinical testing. 02/15/2023 5:38 PM CDT [facility] Embedded Images 5:38 PM CDT [facility] Pathology/Cytolo gy ENTIRE LYMPH NODE / Unknown 02/15/2023 11:32 AM CDT 02/15/2023 5:02 PM CDT Duke Dorantes MD LAB - PATHOLOGY/CYTO LOGY ORDERABLES [facility] [address] [phone] documented in this encounter Visit Diagnoses Diagnosis Intra-abdominal and pelvic swelling, mass and lump, unspecified site documented in this encounter Care Teams Cat Wagon Operator Relationship Specialty Start Date End Date Abdiel Marte MD [address] [place] [address] PCP - General Pediatrics 03/11/15 01/23/24 documented as of this encounter
--- OUTSIDE RECORDS SUMMARY | 2024-10-08 10:32 | XMS_ITS | Patient Health Summary ---
Author Organization [facility] Address [address] [facility] [place] [address] Care Team Providers Care Monument Setter Name Role Phone Unavailable Primary Care Provider Unavailabl e Note from [facility],non-owned Affiliates and Associated Physician Practices is amultiple site organization consisting of ambulatory clinics and hospital sitesin [place], [place], [place] and [place]. This disclosure is being madepursuant to the Care Everywhere program and may not contain all information available regarding this patient. Last updated 18.[facility] Allergies * Penicillins(Rash) -Low Criticality Medications * Be aware that medications may not be up to date on this document. Alwaysverify current medications with the patient. * lansoprazole (PREVACID) 30 MG capsule(Started 06/06/2017) 1 capsule daily before breakfast 4 refills remaining * lansoprazole (PREVACID) 30 MG capsule(Started 03/26/2018) TAKE 1 CAPSULE BY MOUTH DAILY BEFORE BREAKFAST Active Problems Problem Noted Date Diagnosed Date [...] Comments Blood Pressure 110/64 07/12/2017 6:51 PM URBAN DESIGNER Pulse 114 07/12/2017 6:51 PM URBAN DESIGNER Temperature 36.9 C (98.4 F) 07/12/2017 6:51 PM URBAN DESIGNER Respiratory Rate 16 07/12/2017 6:51 PM URBAN DESIGNER Oxygen Saturation 97% 07/12/2017 6:51 PM URBAN DESIGNER Inhaled Oxygen Concentration - - Weight 63.5 kg (140 lb) 07/12/2017 6:51 PM URBAN DESIGNER Height 180.3 cm (5' 11 ) 07/12/2017 6:51 PM URBAN DESIGNER Body Mass Index 19.53 07/12/2017 6:51 PM URBAN DESIGNER Procedures * FLOW CYTOMETRY TISSUE PANEL(Performed 02/15/2023) Performed for Intra-abdominal and pelvic swelling, mass and lump, unspecified site * STREP A SCREEN - POINT OF CARE (AMB) STL(Performed 07/12/2017) Performed for Strep throat * LAB RESULTS ORDER(Performed 05/16/2017) * HELICOBACTER PYLORI UREASE (STL)(Performed 05/11/2017) Performed for Hematemesis with nausea * PATHOLOGY TISSUE EXAM (STL)(Performed 05/11/2017) Performed for Abdominal pain, unspecified location * ESOPHAGOGASTRODUODENOSCOPY (EGD) BIOPSY(Performed 05/11/2017) Performed for Abdominal pain, unspecified location * EGD(Performed 05/11/2017) Performed for Hematemesis with nausea * US SCROTUM W DOPPLER(Performed 03/30/2016) Performed for Groin pain, right * US SCROTUM W DOPPLER(Performed 03/11/2015) Performed for Groin pain, right Results * FLOW CYTOMETRY TISSUE PANEL (02/15/2023 11:32 AM CDT) Case Report Flow Cytometry Case: [id number] Authorizing Provider: Duke Dorantes MD Collected: 02/15/2023 11:32 AM Ordering Location: [facility] Pathology Lab Received: 02/15/2023 05:02 PM Pathologist: Teresa Mckenzie MD Specimen: Lymph Node, RIGHT ABDOMEN 02/15/2023 5:38 PM CDT [facility] PATH[facility] Final Diagnosis Lymph node, right abdomen, flow cytometric immunophenotypic analysis: - Insufficient hematopoietic cells for analysis. - See interpretation. 02/15/2023 5:38 PM CDT [facility] Flow Cytometry Interpretation Preliminary characterization of the right abdominal lymph node specimen demonstrates too few hematopoietic cells for flow cytometric analysis. A cytospin prepared from the flow cytometry specimen is reviewed for quality rn purposes. Flow cytometry is not performed. 02/15/2023 5:38 PM [facility] PATH[facility] Flow Cytometry Results Too few hematopoietic cells for flow cytometric analysis. 02/15/2023 5:38 PM T [facility] PATH[facility] Reason for test Intra-abdominal and pelvic swelling, mass and lump, unspecified site 02/15/2023 5:38 PM T [facility] PATH[facility] Client Specimen ID # [id number] 02/15/2023 5:38 PM T [facility] PATH[facility] LAB Pathologist Location at [facility] 02/15/2023 5:38 PM T [facility] PATH[facility] LAB Disclaimer Test performed at [facility], [address] [place] [address], [facility]. *The established laboratory minimum viability is 70%. [...] complexity clinical testing. 02/15/2023 5:38 PM CDT [facility] PATH[facility] Embedded Images 5:38 PM T [facility] LAB Pathology/Cytolo gy ENTIRE LYMPH NODE / Unknown 02/15/2023 11:32 AM CDT 02/15/2023 5:02 PM CDT Duke Dorantes MD LAB - PATHOLOGY/CYTO LOGY ORDERABLES [facility] LAB [address] [place] [address]. [address] [phone] * (ABNORMAL) STREP A SCREEN (07/12/2017) Strep A Rapid POCT Positive(A) Negative Strep A Internal Control Present Lot # [id number] Expiration Date 12/29/18 Throat ENTIRE THROAT (SURFACE REGION OF NECK) / Unknown 07/12/2017 Tess Wiggins KATHRYN-MANAGER PAYMENT LAB - POINT OF CA RE ORDERABLES * LAB RESULTS ORDER (05/16/2017 11:39 PM CDT) Narrative 05/16/2017 11:39 PM CDT Ordered by an unspecified provider. Scanned Document LAB - THERAPEUTIC DR UG MONITORING ORDERABLES * HELICOBACTER PYLORI UREASE (STL) (05/11/2017 1:07 PM CDT) Helicobacter pylori Urease Initial Negative Negative 05/12/2017 1:58 PM CDT [facility] Helicobacter pylori Urease Final Negative Negative 05/12/2017 1:58 PM CDT [facility] Comment:This is an appended report. These results have been appended to a previously preliminary verified report. Microbiology GASTRIC ANTRAL BIOPSY SPECIMEN / Unknown Collection / Unknown 05/11/2017 1:07 PM CDT 05/11/2017 1:35 PM CDT Eleanor FARRMANAGER PAYMENT LAB - MICROBIOLOG Y ORDERABLES Performing Organization Address City/State/[facility] Co de Phone Number [facility] [address] [place], [place] [id number] * GROSS + MICRO EXAM (STL) (05/11/2017 1:04 PM CDT) Case Report Surgical Pathology Report Case: [id number] Authorizing Provider: Armand Sánchez MD Collected: 05/11/2017 01:04 PM Ordering Location: ENDOSCOPY SERVICES Received: 05/11/2017 02:24 PM Pathologist: Mihai Nava MD Specimens: A) - Duodenal Biopsy B) - Stomach Biopsy C) - Esophageal Biopsy 05/17/2017 12:59 PM CDT [facility] Addendum 1 Immunostain for H. Pylori is negative 05/17/2017 12:59 PM CDT [facility] Addendum electronically signed by Mihai Nava MD on 05/17/2017 at 12:59 PM Final Diagnosis A) DUODENUM, BIOPSY - NO PATHOLOGIC DIAGNOSIS B) STOMACH, BIOPSY: - GASTRITIS, CHRONIC-ACTIVE, MODERATE TO SEVERE C) ESOPHAGUS, BIOPSY: - NO PATHOLOGIC DIAGNOSIS 05/17/2017 12:59 PM [facility] Clinical History 16-year-old boy with abdominal pain who underwent upper GI endoscopy with biopsy. Operative findings: Mild gastritis, rule out H pylori.p 05/17/2017 12:59 PM [facility] Gross Description The specimens are received fixed in formalin in three containers for gross and microscopic examination. All containers are labeled with the patient's name, Enrique Shukla. Specimen A, duodenal biopsy, consists of three soft, yellow-nava tissue fragments, 0.3 to 0.2 cm in greatest dimension. The specimen is submitted in toto as A1. Specimen B, stomach biopsy, consists of multiple soft, yellow-nava tissue fragments, 0.6 to 0.4 cm in greatest dimension. The specimen is submitted in toto as B1. Specimen C, esophageal biopsy, consists of two soft, white-nava tissue fragments, 0.7 to 0.4 cm in greatest dimension. The specimen is submitted in toto as C1. (NK/CSA/ns) 05/17/2017 12:59 PM [facility] Microscopic Description 9 H&E Sections of the duodenal biopsy (A) show fragments of unremarkable duodenal mucosa. Sections of the stomach biopsy (B) show fragments of mucosa with chronic/active inflammation in at least 3 of the 5 biopsies received. The intensity of the inflammation varies from field to field with focal destruction of the pits. Sections of the esophageal biopsy (C) show fragments of stratified squamous epithelium. No eosinophils are seen. (IA/rayna) 05/17/2017 12:59 PM [facility] Disclaimer The performance characteristics of all immunohistochemical and indirect immunofluorescence stains (if any) cited in this report were determined by the Histopathology Laboratory of [facility]. Some of these tests were developed by our own laboratory and have not been cleared or approved by the US Food and Drug Administration (FDA). The FDA does not require this test to go through premarket FDA review. These tests are used for clinical purposes. They should not be regarded as investigational or for research. This laboratory is certified under the Clinical Laboratory Improvement Amendments (CLIA) as qualified to perform high complexity clinical laboratory testing. This case has been personally reviewed and interpreted by the attending (teaching) pathologist. 05/17/2017 12:59 PM CDT [facility] Embedded Images 05/17/2017 12:59 PM CDT [facility] Pathology/Cytology ESOPHAGEAL BIOPSY SPECIMEN / Unknown 05/11/2017 1:04 PM CDT 05/11/2017 2:24 PM CDT Miscellaneous samples (specimen) BIOPSY OF STOMACH / Unknown 05/11/2017 1:04 PM CDT 05/11/2017 2:24 PM CDT Miscellaneous samples (specimen) ESOPHAGEAL BIOPSY SPECIMEN / Unknown 05/11/2017 1:04 PM CDT 05/11/2017 2:24 PM CDT Armand Sánchez MD LAB - PATHOLOGY/CYT OLOGY ORDERABLES Performing Organization Address City/State/[facility] de Phone Number [facility] [address] [place] [address] * EGD (05/11/2017 11:06 AM CDT) Report Endoscopy POC _ Patient Name: Enrique Shukla Date of : 2000 Admit Type: Outpatient Age: 16 Gender: Male Attending MD: Armand Sánchez MD Order #: [id number] _ Procedure: Upper GI endoscopy Indications: Hematemesis, Vomiting Providers: Armand Sánchez MD Referring MD: Abdiel Marte MD Medicines: General Anesthesia Complications: No immediate complications. _ Procedure: After obtaining informed consent, the endoscope was passed under direct vision. Throughout the procedure, the patient's blood pressure, pulse, and oxygen saturations were monitored continuously. The Endoscope was introduced through the mouth, and advanced to the third part of duodenum. The upper GI endoscopy was accomplished without difficulty. The patient tolerated the procedure well. Findings: The examined duodenum was normal. Biopsies were taken with a cold forceps for histology. 3 samples Scattered mild inflammation characterized by erosions was found in the entire examined stomach. Biopsies were taken with a cold forceps for histology. 6 samples plus urease The examined esophagus was normal. Biopsies were taken with a cold forceps for histology. Lower third Impression: - Normal examined duodenum. Biopsied. - Acute gastritis. Biopsied. - Normal esophagus. Biopsied. Recommendation: - Discharge patient to home (with parent). - Continue present medications of PPI. - Await pathology results. - Telephone GI clinic for pathology results in 1 week to determine if other treatment is needed and to plan f/u. Procedure Code(s): --- Professional --- 39879, Esophagogastroduo denoscopy, flexible, transoral; with biopsy, single or multiple --- Technical --- 68060, Esophagogastroduo denoscopy, flexible, transoral; with biopsy, single or multiple Diagnosis Code(s): --- Professional --- K29.00, Acute gastritis without bleeding K92.0, Hematemesis R11.10, Vomiting, unspecified --- Technical --- K29.00, Acute gastritis without bleeding K92.0, Hematemesis R11.10, Vomiting, unspecified CPT copyright 2015 [employer]. All rights reserved. The codes documented in this report are preliminary and upon international guest coordinator review may be revised to meet current compliance requirements. Dr. Armand Sánchez ____ Armand Sánchez MD 05/11/2017 1:26:33 PM This report has been signed electronically. Number of Addenda: 0 Note Initiated On: 05/09/2017 11:06 AM Procedure Date: 05/11/2017 11:06:00 AM This report has been signed electronically. [facility] 05/11/2017 11:0 6 AM CDT Eleanor Lopez CHEMISTRY QUALITY CONTROL ANALYST-MANAGER PAYMENT GI PROCEDURE ORDE KALE [facility] [address] [place] [place] [address] * US SCROTUM WITH DOPPLER (03/30/2016 3:35 PM CDT) Only the most recent of2 resultswithin the time period is included. 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 Narrative 03/31/2016 8:00 AM CDT EXAMINATION: SCROTAL ULTRASOUND WITH DOPPLER HISTORY: 15-year-old with right scrotal swelling. COMPARISON: Scrotal ultrasound dated 03/11/2015. TECHNIQUE: Real-time ultrasound of the scrotum and testes was performed. FINDINGS: The testes are normal in size. The right testis measures 2.6 x 5.0 x 1.7 cm with a volume of 11.8 cm3. The left testis measures 2.4 x 4.2 x 1.7 cm with a volume of 8.9 cm3. Region of decreased echogenicity in the mediastinum of the right testis does not appear to cause mass effect and has internal vascularity. This internal vascularity does not increase with Valsalva. The right epididymis is enlarged and heterogeneous but is not hyperemic. A small left hydrocele is present. There is no evidence of varicocele. Color Doppler and spectral analysis were used to evaluate the scrotal contents. Blood flow is readily detectable in both the right and left testis and appears symmetric bilaterally. Arterial waveforms are present bilaterally. There is no evidence of hyperemia in either the right or left epididymis. Procedure Note Elena Box MD - 03/31/2016 EXAMINATION: SCROTAL ULTRASOUND WITH DOPPLER HISTORY: 15-year-old with right scrotal swelling. COMPARISON: Scrotal ultrasound dated 03/11/2015. TECHNIQUE: Real-time ultrasound of the scrotum and testes was performed. FINDINGS: The testes are normal in size. The right testis measures 2.6 x 5.0 x 1.7 cm with a volume of 11.8 cm3. The left testis measures 2.4 x 4.2 x 1.7 cm with a volume of 8.9 cm3. Region of decreased echogenicity in the mediastinum of the right testis does not appear to cause mass effect and has internal vascularity. This internal vascularity does not increase with Valsalva. The right epididymis is enlarged and heterogeneous but is not hyperemic. A small left hydrocele is present. There is no evidence of varicocele. Color Doppler and spectral analysis were used to evaluate the scrotal contents. Blood flow is readily detectable in both the right and left testis and appears symmetric bilaterally. Arterial waveforms are present bilaterally. There is no evidence of hyperemia in either the right or left epididymis. 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 Bill Gaytan MD US ORDERABLES
--- OUTSIDE RECORDS SUMMARY | 2024-10-08 10:32 | XMS_ITS | Clinical Summary ---
Author Organization [facility] Address [address] [place] [address] Care Team Providers Care Assistant Press Operator Offset Name Role Phone Unavailable Primary Care Provider Unavailabl e Source Comments [facility],non-owned Affiliates and Associated Physician Practices is amultiple site organization consisting of ambulatory clinics and hospital sitesin [place], [place], [place] and [place]. This disclosure is being madepursuant to the Care Everywhere program and may not contain all information available regarding this patient. Last updated 18.[facility] Allergies Active Allergy Reactions Criticality Noted Date [...] Comments Blood Pressure 110/64 07/12/2017 6:51 PM IMPORT MANAGER Pulse 114 07/12/2017 6:51 PM IMPORT MANAGER Temperature 36.9 C (98.4 F) 07/12/2017 6:51 PM IMPORT MANAGER Respiratory Rate 16 07/12/2017 6:51 PM IMPORT MANAGER Oxygen Saturation 97% 07/12/2017 6:51 PM IMPORT MANAGER Inhaled Oxygen Concentration - - Weight 63.5 kg (140 lb) 07/12/2017 6:51 PM IMPORT MANAGER Height 180.3 cm (5' 11 ) 07/12/2017 6:51 PM IMPORT MANAGER Body Mass Index 19.53 07/12/2017 6:51 PM IMPORT MANAGER Plan of Treatment Health Maintenance Due Date Last Done Comments HIV SCREENING 12/25/2014 HPV VACCINE (1 - Male 3-dose series) 12/25/2014 HEPATITIS C SCREENING 12/21/2017 DTAP/TDAP/TD VACCINES (1 - Tdap) 12/25/2018 HEPATITIS B VACCINE (1 of 3 - 19+ 3-dose series) 12/25/2018 COVID-19 VACCINE ( - 2023-2 5 season) 2024 INFLUENZA VACCINE (#1) 2024 DEPRESSION SCREENING 08/13/2024 ZOSTER VACCINE (1 of 2) 12/25/2049 HIB VACCINE Aged Out No longer eligi ble based on patient's age to complete this topic MENINGOCOCCAL (Group B) VACCINE Aged Out No longer eligible based on patient's age to complete this topic MENINGOCOCCAL VACCINE Aged Out No gisela natalie eligible based on patient's age to complete this topic PNEUMOCOCCAL VACCINE Aged Out No long er eligible based on patient's age to complete this topic ENRIQUE SHUKLA Personal/Family [address] [place] [address] ENRIQUE SHUKLA Personal/Family [address] [place] [address] ENRIQUE SHUKLA Personal/Family [address] [place] [address] ENRIQUE SHUKLA Personal/Family Spouse 2000 [address] [place] [address]
--- OUTSIDE RECORDS SUMMARY | 2024-10-08 10:32 | XMS_ITS | Referral Summary ---
Author Organization [address] Address [address] [place] [id number] Care Team Providers Care Steam And Gas Turbines Assembler Name Role Phone No, Physician Primary Care Provider [phone] Allergies Active Allergy Reactions Criticality Noted Date [...] on file Legal Sex Male 5:34 PM ELECTROCARDIOGRAPH OPERATOR Gender Identity Not on file Sexual Orientation Not on file Last Filed Vital Signs Vital Sign Reading Time Taken Comments Blood Pressure 119/84 10/07/2023 6:20 PM ELECTROCARDIOGRAPH OPERATOR Pulse 103 10/07/2023 6:20 PM ELECTROCARDIOGRAPH OPERATOR Temperature 36.3 C (97.4 F) 10/07/2023 6:20 PM ELECTROCARDIOGRAPH OPERATOR Respiratory Rate 16 10/07/2023 6:20 PM ELECTROCARDIOGRAPH OPERATOR Oxygen Saturation 98% 10/07/2023 6:20 PM ELECTROCARDIOGRAPH OPERATOR Inhaled Oxygen Concentration - - Weight 73.5 kg (162 lb) 10/07/2023 6:20 PM ELECTROCARDIOGRAPH OPERATOR Height 185.4 cm (6' 1 ) 10/07/2023 6:20 PM ELECTROCARDIOGRAPH OPERATOR Body Mass Index 21.37 10/07/2023 6:20 PM ELECTROCARDIOGRAPH OPERATOR Plan of Treatment Not on file Insurance [place] [place] Care Teams Steam And Gas Turbines Assembler Relationship Specialty Start Date End Date No, Physician PCP - General 10/07/23
[2024-10-08 10:49] LABS: Hematocrit 45.9 % (42.0-52.0); Hemoglobin 15.4 g/dL (14.0-18.0); Mean Corpuscular HGB Conc 33.6 g/dl (32-36); Mean Corpuscular Hemoglobin 27.8 pg (26-34); Mean Corpuscular Volume 82.9 fl (80-100); Mean Platelet Volume 10.3 fl (7.4-10.4); Platelet Count Result 297 k/mm3 (150-375); Red Blood Count 5.54 M/mm3 (4.6-6.20); Red Cell Distribution Width 13.3 % (11.5-14.5); White Blood Count 9.1 K/mm3 (4.5-10.0)
[2024-10-08 11:17] LABS: Alanine Aminotransferase 38 U/L (6-50); Albumin Level 4.8 g/dL (3.5-5.1); Alkaline Phosphatase 99 U/L (38-126); Anion Gap 11 mmol/L (4-12); Aspartate Amino Transferase 36 U/L (17-59); Bilirubin,Total 0.8 mg/dL (0.2-1.3); Blood Urea Nitrogen 15 mg/dL (9-20); CRP < 0.5 mg/dL (<1.0); Carbon Dioxide 28 mmol/L (22-30); Chloride 102 mmol/L (98-107); Estimated Glomerular Filt Rate > 60; Glucose 86 mg/dL (65-110); Potassium 4.2 mmol/L (3.4-5.0); Sodium 141 mmol/L (137-145)
[2024-10-08 11:21] LABS: Erythrocyte Sedimentation Rate 1 mm/hr (0-20)
== END 2024-10-08 09:33 | disposition home or self-care (01) ==
LOC: ANHLAB 09:34
PROVIDERS: PCP Family Medicine; Visit Provider Nurse Practitioner
DX: K50.013 Crohn's disease of small intestine with fistula (principal)
CPT/HCPCS: 36415; 80053; 85027; 85652; 86140

== ENCOUNTER 2024-10-10 12:19 | Outpatient (CLI) | payer BC, MEDICAID, SELFPAY | END 2024-10-10 12:20 | disposition home or self-care (01) | LOC: ANHLAB 12:20 | PROVIDERS: PCP Family Medicine; Visit Provider Nurse Practitioner | DX: K50.013 Crohn's disease of small intestine with fistula (principal) | CPT/HCPCS: 83993 ==

== ENCOUNTER 2024-10-20 00:26 | Day surgery (SDC) | payer BC, MEDICAID, SELFPAY ==
[2024-10-10 14:07] VITALS: BMI 23.2
--- OUTSIDE RECORDS SUMMARY | 2024-10-20 00:29 | XMS_ITS | Clinical Summary ---
Author Organization [address] Address [address] [place] [phone] Care Team Providers Care Rf Technician Name Role Phone No, Physician Primary Care Provider Allergies Active Allergy Reactions Criticality Noted Date [...] on file Legal Sex Male 5:34 PM JERKER Gender Identity Not on file Sexual Orientation Not on file Obstetrics History Last Filed Vital Signs Vital Sign Reading Time Taken Comments Blood Pressure 119/84 10/07/2023 6:20 PM JERKER Pulse 103 10/07/2023 6:20 PM JERKER Temperature 36.3 C (97.4 F) 10/07/2023 6:20 PM JERKER Respiratory Rate 16 10/07/2023 6:20 PM JERKER Oxygen Saturation 98% 10/07/2023 6:20 PM JERKER Inhaled Oxygen Concentration - - Weight 73.5 kg (162 lb) 10/07/2023 6:20 PM JERKER Height 185.4 cm (6' 1 ) 10/07/2023 6:20 PM JERKER Body Mass Index 21.37 10/07/2023 6:20 PM JERKER Plan of Treatment Health Maintenance Due Date [...] exists Varicella Vaccines Completed 03/06/2011, 12/31/2000 Insurance [employer] [place] [employer] [place] Care Teams Rf Technician Relationship Specialty Start Date End Date No, Physician PCP - General 10/07/23
--- OUTSIDE RECORDS SUMMARY | 2024-10-20 00:29 | XMS_ITS | Encounter Summary ---
Author Organization [facility] Address [address] [place] [address] Care Team Providers Care Regional Vice President Life Sales Name Role Phone Abdiel Marte MD Primary Care Provider [phone] Encounter Details Date Type Department Care Team (Late st Contact Info) Description 02/15/2023 Lab Requisition [facility] - Pathology Lab [address] [place] [address] Duke Dorantes MD [address] [place] [phone] Intra-abdominal and pelvic swelling, mass and [...] AM CDT) Case Report Flow Cytometry Case: [id number] Authorizing Provider: uDke Dorantes MD Collected: 02/15/2023 11:32 AM Ordering Location: [facility] Pathology Lab Received: 02/15/2023 05:02 PM Pathologist: Teresa Mckenzie MD Specimen: Lymph Node, RIGHT ABDOMEN 02/15/2023 5:38 PM CDT [facility] Final Diagnosis Lymph node, right abdomen, flow cytometric immunophenotypic analysis: - Insufficient hematopoietic cells for analysis. - See interpretation. 02/15/2023 5:[address] [facility] PATH[facility] Flow Cytometry Interpretation Preliminary characterization of the right abdominal lymph node specimen demonstrates too few hematopoietic cells for flow cytometric analysis. A cytospin prepared from the flow cytometry specimen is reviewed for production quality manager purposes. Flow cytometry is not performed. 02/15/2023 5:[address] [facility] PATH[facility] Flow Cytometry Results Too few hematopoietic cells for flow cytometric analysis. 02/15/2023 5:38 PM CDT [facility] Reason for test Intra-abdominal and pelvic swelling, mass and lump, unspecified site 02/15/2023 5:[address] [facility] Client Specimen ID # [id number] 02/15/2023 5:[address] [facility] Pathologist Location at [facility] 02/15/2023 5:[address] [facility] PATH[facility] LAB Disclaimer Test performed at [facility], [address] [place] [address], [address]. *The established laboratory minimum viability is 70%. [...] complexity clinical testing. 02/15/2023 5:[address] [facility] Embedded Images 5:[address] [facility] Pathology/Cytolo gy ENTIRE LYMPH NODE / Unknown 02/15/2023 11:32 AM CDT 02/15/2023 5:02 PM CDT Duke Dorantes MD LAB - PATHOLOGY/CYTO LOGY ORDERABLES [facility] [address] [phone] documented in this encounter Visit Diagnoses Diagnosis Intra-abdominal and pelvic swelling, mass and lump, unspecified site documented in this encounter Care Teams Regional Vice President Life Sales Relationship Specialty Start Date End Date Abdiel Marte MD [address] [place] [address] PCP - General Pediatrics 03/11/15 01/23/24 documented as of this encounter
--- OUTSIDE RECORDS SUMMARY | 2024-10-20 00:29 | XMS_ITS | Referral Summary ---
Author Organization [address] Address [address] [place] [phone] Care Team Providers Care Driver Helper Name Role Phone No, Physician Primary Care Provider [phone] Allergies Active Allergy Reactions Criticality Noted Date [...] on file Legal Sex Male 5:34 PM TOBACCO SAMPLE PULLER Gender Identity Not on file Sexual Orientation Not on file Last Filed Vital Signs Vital Sign Reading Time Taken Comments Blood Pressure 119/84 10/07/2023 6:20 PM TOBACCO SAMPLE PULLER Pulse 103 10/07/2023 6:20 PM TOBACCO SAMPLE PULLER Temperature 36.3 C (97.4 F) 10/07/2023 6:20 PM TOBACCO SAMPLE PULLER Respiratory Rate 16 10/07/2023 6:20 PM TOBACCO SAMPLE PULLER Oxygen Saturation 98% 10/07/2023 6:20 PM TOBACCO SAMPLE PULLER Inhaled Oxygen Concentration - - Weight 73.5 kg (162 lb) 10/07/2023 6:20 PM TOBACCO SAMPLE PULLER Height 185.4 cm (6' 1 ) 10/07/2023 6:20 PM TOBACCO SAMPLE PULLER Body Mass Index 21.37 10/07/2023 6:20 PM TOBACCO SAMPLE PULLER Plan of Treatment Not on file Insurance [employer] [place] [employer] [place] Care Teams Driver Helper Relationship Specialty Start Date End Date No, Physician PCP - General 10/07/23
--- OUTSIDE RECORDS SUMMARY | 2024-10-20 00:29 | XMS_ITS | Referral Summary ---
Author Organization [facility] Address [address] [place] [address] Care Team Providers Care Driveway Sealer Name Role Phone Unavailable Primary Care Provider Unavailabl e Source Comments [facility],non-owned Affiliates and Associated Physician Practices is amultiple site organization consisting of ambulatory clinics and hospital sitesin [place], [place], [place] and [place]. This disclosure is being madepursuant to the Care Everywhere program and may not contain all information available regarding this patient. Last updated 18.[facility] Allergies Active Allergy Reactions Criticality Noted Date [...] Comments Blood Pressure 110/64 07/12/2017 6:51 PM HYSTER MACHINE OPERATOR Pulse 114 07/12/2017 6:51 PM HYSTER MACHINE OPERATOR Temperature 36.9 C (98.4 F) 07/12/2017 6:51 PM HYSTER MACHINE OPERATOR Respiratory Rate 16 07/12/2017 6:51 PM HYSTER MACHINE OPERATOR Oxygen Saturation 97% 07/12/2017 6:51 PM HYSTER MACHINE OPERATOR Inhaled Oxygen Concentration - - Weight 63.5 kg (140 lb) 07/12/2017 6:51 PM HYSTER MACHINE OPERATOR Height 180.3 cm (5' 11 ) 07/12/2017 6:51 PM HYSTER MACHINE OPERATOR Body Mass Index 19.53 07/12/2017 6:51 PM HYSTER MACHINE OPERATOR Functional Status Functional Status Response Date of [...] Not on file ENRIQUE SHUKLA Personal/Family [address] [place] [address] ENRIQUE SHUKLA Personal/Family [address] [place] [address] ENRIQUE SHUKLA Personal/Family [address] [place] [address] ENRIQUE SHUKLA Personal/Family Spouse [address] [facility] [place] [address]
--- OUTSIDE RECORDS SUMMARY | 2024-10-20 00:29 | XMS_ITS | Patient Health Summary ---
Author Organization [facility] Address [address] [place] [address] Care Team Providers Care Children'S Court Magistrate Name Role Phone Unavailable Primary Care Provider Unavailabl e Note from [facility],non-owned Affiliates and Associated Physician Practices is amultiple site organization consisting of ambulatory clinics and hospital sitesin [place], [place], [place] and [place]. This disclosure is being madepursuant to the Care Everywhere program and may not contain all information available regarding this patient. Last updated 18.[facility] Allergies * Penicillins(Rash) -Low Criticality Medications [...] Comments Blood Pressure 110/64 07/12/2017 6:51 PM MOBILE HOME INSTALLER Pulse 114 07/12/2017 6:51 PM MOBILE HOME INSTALLER Temperature 36.9 C (98.4 F) 07/12/2017 6:51 PM MOBILE HOME INSTALLER Respiratory Rate 16 07/12/2017 6:51 PM MOBILE HOME INSTALLER Oxygen Saturation 97% 07/12/2017 6:51 PM MOBILE HOME INSTALLER Inhaled Oxygen Concentration - - Weight 63.5 kg (140 lb) 07/12/2017 6:51 PM MOBILE HOME INSTALLER Height 180.3 cm (5' 11 ) 07/12/2017 6:51 PM MOBILE HOME INSTALLER Body Mass Index 19.53 07/12/2017 6:51 PM MOBILE HOME INSTALLER Procedures * FLOW CYTOMETRY TISSUE PANEL(Performed 02/15/2023) [...] AM CDT) Case Report Flow Cytometry Case: [id number] Authorizing Provider: Duke Dorantes MD Collected: 02/15/2023 11:32 AM Ordering Location: [facility] Pathology Lab Received: 02/15/2023 05:02 PM [...] flow cytometry specimen is reviewed for quality lab technician purposes. Flow cytometry is not performed. 02/15/2023 5:[address] [facility] PATHOLOGY LAB Flow Cytometry Results Too few hematopoietic cells for flow cytometric analysis. 02/15/2023 5:38 PM T [facility] Reason for test Intra-abdominal and pelvic swelling, mass and lump, unspecified site 02/15/2023 5:38 PM T [facility] Client Specimen ID # [id number] 02/15/2023 5:38 PM T [facility] PATH[facility] LAB Pathologist Location at [facility] 02/15/2023 5:38 PM T [facility] Disclaimer Test performed at [facility], [address] [place] [address], [facility]. *The established laboratory minimum viability is 70%. [...] clinical testing. 02/15/2023 5:38 PM CDT [facility] Embedded Images 5:38 PM T [facility] Pathology/Cytolo gy ENTIRE LYMPH NODE / Unknown 02/15/2023 11:32 AM CDT 02/15/2023 5:02 PM CDT Duke Dorantes MD LAB - PATHOLOGY/CYTO LOGY ORDERABLES [facility] [address] [place] [address]. [address] [phone] * (ABNORMAL) STREP A SCREEN (07/12/2017) Strep A Rapid POCT Positive(A) Negative Strep A Internal Control Present Lot # [id number] Expiration Date 12/29/18 Throat ENTIRE THROAT (SURFACE REGION OF NECK) / Unknown 07/12/2017 Tess Wiggins KATHRYN-MAINTENANCE OPERATOR LAB - POINT OF CA RE ORDERABLES * LAB RESULTS ORDER (05/16/2017 11:39 PM CDT) Narrative 05/16/2017 11:39 PM CDT Ordered by an unspecified provider. Scanned Document LAB - THERAPEUTIC DR UG MONITORING ORDERABLES * HELICOBACTER PYLORI UREASE (STL) (05/11/2017 1:07 PM CDT) Helicobacter pylori Urease Initial Negative Negative 05/12/2017 1:58 PM CDT [facility] Helicobacter pylori Urease Final Negative Negative 05/12/2017 1:58 PM CDT [facility] Comment:This is an appended report. These results have been appended to a previously preliminary verified report. Microbiology GASTRIC ANTRAL BIOPSY SPECIMEN / Unknown Collection / Unknown 05/11/2017 1:07 PM CDT 05/11/2017 1:35 PM CDT Eleanor FARRMAINTENANCE OPERATOR LAB - MICROBIOLOG Y ORDERABLES Performing Organization Address City/State/[facility] Co de Phone Number [facility] [address] [place], [place] [id number] * GROSS + MICRO EXAM (STL) (05/11/2017 1:04 PM CDT) Case Report Surgical Pathology Report Case: [id number] Authorizing Provider: Armand Sánchez MD Collected: 05/11/2017 01:04 PM Ordering Location: ENDOSCOPY SERVICES Received: 05/11/2017 02:24 PM Pathologist: Mihai Nava MD Specimens: A) - Duodenal Biopsy B) - Stomach Biopsy C) - Esophageal Biopsy 05/17/2017 12:59 PM CDT [facility] Addendum 1 Immunostain for H. Pylori is negative 05/17/2017 12:59 PM CDT [facility] Addendum electronically signed by Mihai Nava MD on 05/17/2017 at 12:59 PM Final Diagnosis A) DUODENUM, BIOPSY - NO PATHOLOGIC DIAGNOSIS B) STOMACH, BIOPSY: - GASTRITIS, CHRONIC-ACTIVE, MODERATE TO SEVERE C) ESOPHAGUS, BIOPSY: - NO PATHOLOGIC DIAGNOSIS 05/17/2017 12:59 PM [facility] Clinical History 16-year-old boy with abdominal pain who underwent upper GI endoscopy with biopsy. Operative findings: Mild gastritis, rule out H pylori.p 05/17/2017 12:59 PM [facility] Gross Description The specimens are received [...] toto as C1. (NK/CSA/ns) 05/17/2017 12:59 PM [facility] Microscopic Description 9 H&E Sections of [...] eosinophils are seen. (IA/rayna) 05/17/2017 12:59 PM [facility] Disclaimer The performance characteristics of all immunohistochemical and indirect immunofluorescence stains (if any) cited in this report were determined by the Histopathology Laboratory of [facility]. Some of these tests were developed by [...] attending (teaching) pathologist. 05/17/2017 12:59 PM CDT [facility] Embedded Images 05/17/2017 12:59 PM CDT [facility] Pathology/Cytology ESOPHAGEAL BIOPSY SPECIMEN / Unknown 05/11/2017 1:04 PM CDT 05/11/2017 2:24 PM CDT Miscellaneous samples (specimen) BIOPSY OF STOMACH / Unknown 05/11/2017 1:04 PM CDT 05/11/2017 2:24 PM CDT Miscellaneous samples (specimen) ESOPHAGEAL BIOPSY SPECIMEN / Unknown 05/11/2017 1:04 PM CDT 05/11/2017 2:24 PM CDT Armand Sánchez MD LAB - PATHOLOGY/CYT OLOGY ORDERABLES Performing Organization Address City/State/[facility] de Phone Number [facility] [address] [place] [address] * EGD (05/11/2017 11:06 AM CDT) Report Endoscopy POC _ Patient Name: Enrique Shukla Date of : 2000 Admit Type: Outpatient Age: 16 Gender: Male Attending MD: Armand Sánchez MD Order #: [id number] _ Procedure: Upper GI endoscopy Indications: Hematemesis, [...] plan f/u. Procedure Code(s): --- Professional --- 34349, Esophagogastroduo denoscopy, flexible, transoral; with biopsy, single or multiple --- Technical --- 17860, Esophagogastroduo denoscopy, flexible, transoral; with biopsy, single or multiple Diagnosis Code(s): --- Professional --- K29.00, Acute gastritis without bleeding K92.0, Hematemesis R11.10, Vomiting, unspecified --- Technical --- K29.00, Acute gastritis without bleeding K92.0, Hematemesis R11.10, Vomiting, unspecified CPT copyright 2015 [employer]. All rights reserved. The codes documented in this report are preliminary and upon dumpcart driver review may be revised to meet current compliance requirements. Dr. Armand Sánchez ____ Armand Sánchez MD 05/11/2017 1:26:33 PM This report has been signed electronically. Number of Addenda: 0 Note Initiated On: 05/09/2017 11:06 AM Procedure Date: 05/11/2017 11:06:00 AM This report has been signed electronically. [facility] 05/11/2017 11:0 6 AM CDT Eleanor Lopez TRANSPLANT REGISTERED NURSE-MAINTENANCE OPERATOR GI PROCEDURE ORDE KALE [facility] [address] [place] [place] [address] * US SCROTUM WITH DOPPLER (03/30/2016 3:35 [...]
--- OUTSIDE RECORDS SUMMARY | 2024-10-20 00:29 | XMS_ITS | Clinical Summary ---
Author Organization [facility] Address [address] [place] [address] Care Team Providers Care Vocational Training Teacher Name Role Phone Unavailable Primary Care Provider Unavailabl e Source Comments [facility],non-owned Affiliates and Associated Physician Practices is amultiple site organization consisting of ambulatory clinics and hospital sitesin [place], [place], [place] and [place]. This disclosure is being madepursuant to the Care Everywhere program and may not contain all information available regarding this patient. Last updated 18.[facility] Allergies Active Allergy Reactions Criticality Noted Date [...] Comments Blood Pressure 110/64 07/12/2017 6:51 PM MECHANIC INDUSTRIAL TRUCK Pulse 114 07/12/2017 6:51 PM MECHANIC INDUSTRIAL TRUCK Temperature 36.9 C (98.4 F) 07/12/2017 6:51 PM MECHANIC INDUSTRIAL TRUCK Respiratory Rate 16 07/12/2017 6:51 PM MECHANIC INDUSTRIAL TRUCK Oxygen Saturation 97% 07/12/2017 6:51 PM MECHANIC INDUSTRIAL TRUCK Inhaled Oxygen Concentration - - Weight 63.5 kg (140 lb) 07/12/2017 6:51 PM MECHANIC INDUSTRIAL TRUCK Height 180.3 cm (5' 11 ) 07/12/2017 6:51 PM MECHANIC INDUSTRIAL TRUCK Body Mass Index 19.53 07/12/2017 6:51 PM MECHANIC INDUSTRIAL TRUCK Plan of Treatment Health Maintenance Due Date [...] this topic ENRIQUE SHUKLA Personal/Family [address] [place] [address] ENRIQUE SHUKLA Personal/Family [address] [place] [address] ENRIQUE SHUKLA Personal/Family [address] [place] [address] ENRIQUE SHUKLA Personal/Family Spouse 2000 [address] [place] [address]
[2024-10-20 07:31] VITALS: BP 134/85; PULSE 98; RESP 16; TEMP 36.7; O2SAT 98
[2024-10-20] MEDS: LACTATED RINGERS 1,000 ML 150 ML IV CONT (07:37)
--- NOTE | 2024-10-20 07:58 | WPDANESEPPF ---
Anes - Initial Pre Proc Eval Procedure: Operation Date: 10/20/24 08:30 Proposed Procedures p Esophagogastroduodenoscopy EGD - Timur Barbour MD Date/Time: 10/20/24 07:58 Surgeon: Timur Barbour MD Pre Op Diagnosis: gastro-esophageal reflux disease Patient Data Age: 23 Gender: M Height: 1.85 m Weight: 81.8 kg Last Vital Signs Temp 36.7 C 10/20/24 07:31 Pulse 98 10/20/24 07:31 Resp 16 10/20/24 07:31 BP 134/85 10/20/24 07:31 Pulse Ox 98 10/20/24 07:31 O2 Del Method Room Air 10/20/24 07:31 Allergies Allergy/AdvReac Type Severity Reaction Status Date / Time Penicillins Allergy Mild RASH Verified 10/20/24 07:29 Home Medications ?Medication ?Instructions ?Recorded ?Confirmed ?Type multivitamin 1 tablet PO DAILY 03/22/23 10/20/24 History ustekinumab 90 mg/mL subcutaneous See Rx Instructions .Route 08/12/24 10/20/24 Rx syringe (Stelara) .COMPLEX #1 ea escitalopram oxalate 10 mg tablet 10 mg PO DAILY #30 tabs 08/19/24 10/20/24 Rx omeprazole 20 mg capsule,delayed 20 mg PO DAILY 10/08/24 10/10/24 History release omeprazole 20 mg capsule,delayed 20 mg PO DAILY #90 caps 10/08/24 10/20/24 Rx release Patient hx anesthesia problems: none Family hx anesthesia problems: none Results Review: All pre-operative results and documents have been reviewed as part of the pre-operative evaluation. [facility] Past Medical History Medical History Depression with anxiety Colonic fistula Crohn's disease of ileum Crohn's disease involving terminal ileum Surgical History Surgical History History of colonoscopy History of esophagogastroduodenoscopy (EGD) Family History Family History Father Healthy adult Diabetes mellitus Mother Healthy adult Hypertension Sibling Healthy adult Social History Social History Social History: He recently graduated from [employer] with associate's degree in film and editing. He uses marijuana edibles on occasion. He is a lifelong nonsmoker. He occasionally drinks alcohol in moderation. He lives at home with his parents. Smoking status: Never smoker Alcohol intake: current Alcohol use details: socially Substance use: current Substance use type: marijuana Other substance usage details: Edibles 1-2x a week Lack of Transportation: No Lack of Food: Never True Current Housing: I Have Housing Concerned About Future Housing: No Difficulty Paying Gas/Electric Bills: No Difficulty Paying for Meds: No Currently Unemployed: No Education: Associate Degree Difficulty w/ Childcare or Family Care: No Living arrangements: with family Occupation/Education: unemployed Gender identity (if verbalized by the patient): Male Sexual Orientation (if Verbalized by the Patient): Straight or Heterosexual Spiritual care concerns: No Anes - Eval Final PreProcedure Day of Procedure 10/20/24 07:58 Patient weight: normal Heart: regular rate and rhythm Lungs: clear to auscultation Airway: Mallampati scale class II Neurological: alert and oriented Last oral intake: >/= 8 hours ASA classification: III Emergent: no Anesthetic plan: proceed Anesthesia type and monitoring: general GIVS and standard monitoring Results Review: All pre-operative results and documents have been reviewed as part of the pre-operative evaluation. Informed Consent: The patient's anesthetic plan and its attendant risks and benefits were discussed with the patient/family/POA. Questions were solicited and answers provided to the satisfaction of the patient/family/POA.
--- NOTE | 2024-10-20 08:11 | WPDHPUPDATE1 ---
History and Physical Update Update Date/Time: 10/20/24 08:11 History and Physical has been reviewed, including an updated exam of the patient. There are NO changes in the patient's condition. Risks, benefits, and alternatives have been discussed and questions answered. Patient agrees to proceed with procedure.
[2024-10-20 08:22] VITALS: BP 107/61; PULSE 66; RESP 20; O2SAT 100
[2024-10-20 08:32] VITALS: BP 105/59; PULSE 64; RESP 22; O2SAT 100
[2024-10-20 08:42] VITALS: BP 126/61; PULSE 50; RESP 20; O2SAT 100
== END 2024-10-20 08:56 | disposition home or self-care (01) ==
PROVIDERS: PCP Family Medicine; Referring Provider Nurse Practitioner; Visit Provider Internal Medicine Gastroenterology
PROC: 0DJ08ZZ Inspection of Upper Intestinal Tract, Via Natural or Artificial Opening Endoscopic (ICD-10-PCS; CPT 43239; principal; 2024-10-20 08:30)
DX: K29.50 Unspecified chronic gastritis without bleeding (principal); K29.80 Duodenitis without bleeding; K21.9 Gastro-esophageal reflux disease without esophagitis; F41.8 Other specified anxiety disorders; F12.90 Cannabis use, unspecified, uncomplicated; Z98.890 Other specified postprocedural states; Z87.19 Personal history of other diseases of the digestive system
CPT/HCPCS: 43239; 88305; J2003; J2704; J7120

== ENCOUNTER 2025-04-07 09:36 | Outpatient (CLI) | payer BC, SELFPAY ==
[2025-04-07 09:52] LABS: Hematocrit 47.4 % (42.0-52.0); Hemoglobin 15.5 g/dL (14.0-18.0); Mean Corpuscular HGB Conc 32.7 g/dl (32-36); Mean Corpuscular Hemoglobin 26.7 pg (26-34); Mean Corpuscular Volume 81.6 fl (80-100); Platelet Count Result 279 k/mm3 (150-375); Red Blood Count 5.81 M/mm3 (4.6-6.20); White Blood Count 8.8 K/mm3 (4.5-10.0)
--- OUTSIDE RECORDS SUMMARY | 2025-04-07 09:56 | XMS_ITS | Clinical Summary ---
Author Organization [address] Address [address] [place] [phone] Care Team Providers Care Forensic Specialist Name Role Phone No, Physician Primary Care Provider [phone] Allergies Active Allergy Reactions Criticality Noted Date [...] on file Legal Sex Male 5:34 PM CARDIOLOGIST Gender Identity Not on file Sexual Orientation Not on file Obstetrics History Last Filed Vital Signs Vital Sign Reading Time Taken Comments Blood Pressure 119/84 10/07/2023 6:20 PM CARDIOLOGIST Pulse 103 10/07/2023 6:20 PM CARDIOLOGIST Temperature 36.3 C (97.4 F) 10/07/2023 6:20 PM CARDIOLOGIST Respiratory Rate 16 10/07/2023 6:20 PM CARDIOLOGIST Oxygen Saturation 98% 10/07/2023 6:20 PM CARDIOLOGIST Inhaled Oxygen Concentration - - Weight 73.5 kg (162 lb) 10/07/2023 6:20 PM CARDIOLOGIST Height 185.4 cm (6' 1) 10/07/2023 6:20 PM CARDIOLOGIST Body Mass Index 21.37 10/07/2023 6:20 PM CARDIOLOGIST Plan of Treatment Health Maintenance Due Date Last Done Comments Depression Screening 2000 Hepatitis C Screening 2000 HPV Vaccines (1 - Male 3-dos e series) 12/25/2014 Regular Well Visit/Exam 18-64 12/25/2017 DTaP/Tdap/Td Vaccine (7 - Td or Tdap) 03/06/2021 03/06/2011, 02/02/2005, 07/01/2001, Additional history exists Covid-19 Vaccine (2023-2 5 season) 2024 08/19/2021, 12/02/2020, 11/11/2020 Influenza Vaccine (#1) 2025 06/23/2014 Hepatitis B Screening Completed 10/05/2000 , 01/30/2000, 2000 Pneumococcal vaccine <65 Completed 001, 07/03/2000, 05/03/2000, Additional history exists Varicella Vaccines Completed 03/06/2011, 12/31/2000 [place] [employer] [place] [employer] [place] Care Teams Forensic Specialist Relationship Specialty Start Date End Date No, Physician PCP - General 10/07/23
--- OUTSIDE RECORDS SUMMARY | 2025-04-07 09:56 | XMS_ITS | Encounter Summary ---
Author Organization [facility] Address [address] [place] [address] Care Team Providers Care Kaitara Taraka Name Role Phone Abdiel Marte MD Primary Care Provider [phone] Encounter Details Date Type Department Care Team (Late st Contact Info) Description 02/15/2023 Lab Requisition [facility] - Pathology Lab [address] [place] [address] Duke Dorantes MD [address] [place] [phone] Intra-abdominal and pelvic swelling, mass and lump, unspecified site Social History Tobacco Use Types Packs/Day Years Used Date Smoking Tobacco: Never Smokeless Tobacco: Never Sex and Gender Information Value Date Recorded Sex Assigned at Not on file Legal Sex Male 1:53 PM CDT Gender Identity Not on file Sexual Orientation Not on file documented as of this encounter Functional Status * Is person deaf or have serious hearing difficulty? Answer Date of Assessment Author No 05/11/2017 2:04 PM CDT Marlen Lepe RN * Is person blind or have serious difficulty seeing? Answer Date of Assessment Author No 05/11/2017 2:04 PM CDT Marlen Lepe RN * Does person have serious difficulty walking/climbing stairs? Answer Date of Assessment Author No 05/11/2017 2:04 PM CDT Marlen Lepe RN * Does person have difficulty dressing/bathing? Answer Date of Assessment Author No 05/11/2017 2:04 PM CDT Postol, Marlen Gardiner RN * Does person have difficulty doing errands alone? Answer Date of Assessment Author No 05/11/2017 2:04 PM CDT Postol, Marlen Gardiner RN documented as of this encounter Mental Status * Does person have difficulty concentrating/remembering/making decisions? Answer Entry Date Author No 05/11/2017 2:04 PM CDT Postol, Marlen Gardiner RN documented in this encounter Plan of Treatment Not on file documented as of this encounter Procedures Procedure Name Priority Date/Time Associated Diagnosis Comments FLOW CYTOMETRY TISSUE PANEL Routine 02/15/2023 11:32 AM CDT Intra-abdominal and pelvic swelling, mass and lump, unspecified site documented in this encounter Results * FLOW CYTOMETRY TISSUE PANEL (02/15/2023 11:32 AM CDT) Case Report Flow Cytometry Case: [id number] Authorizing Provider: Duke Dorantes MD Collected: 02/15/2023 11:32 AM Ordering Location: [facility] Pathology Lab Received: 02/15/2023 05:02 PM Pathologist: Teresa Mckenzie MD Specimen: Lymph Node, RIGHT ABDOMEN 02/15/2023 5:38 PM CDT [facility] Final Diagnosis Lymph node, right abdomen, flow cytometric immunophenotypic analysis: - Insufficient hematopoietic cells for analysis. - See interpretation. 02/15/2023 5:38 PM CDT [facility] at 1738 CDT Flow Cytometry Interpretation Preliminary characterization of the right abdominal lymph node specimen demonstrates too few hematopoietic cells for flow cytometric analysis. A cytospin prepared from the flow cytometry specimen is reviewed for quality control chemist purposes. Flow cytometry is not performed. 02/15/2023 5:38 PM CDT [facility] Flow Cytometry Results Too few hematopoietic cells for flow cytometric analysis. 02/15/2023 5:38 PM CDT [facility] Reason for test Intra-abdominal and pelvic swelling, mass and lump, unspecified site 02/15/2023 5:38 PM CDT [facility] Client Specimen ID # [id number] 02/15/2023 5:38 PM CDT [facility] Pathologist Location at [facility] 02/15/2023 5:38 PM CDT [facility] Disclaimer Test performed at [facility], [address] [place], [place], [address]. *The established laboratory minimum viability is 70%. [...] clinical testing. 02/15/2023 5:38 PM CDT [facility] Embedded Images 5:38 PM CDT [facility] Pathology/Cytolo gy ENTIRE LYMPH NODE / Unknown 02/15/2023 11:32 AM CDT 02/15/2023 5:02 PM CDT Duke Dorantes MD LAB - PATHOLOGY/CYTOLOGY ORDERAB LES Final Result [facility] [address] [facility] [place] [address], [facility] [phone] documented in this encounter Visit Diagnoses Diagnosis Intra-abdominal and pelvic swelling, mass and lump, unspecified site documented in this encounter Care Teams Kaitara Taraka Relationship Specialty Start Date End Date Abdiel Marte MD [address] [place] [address] PCP - General Pediatrics 03/11/15 01/23/24 documented as of this encounter
--- OUTSIDE RECORDS SUMMARY | 2025-04-07 09:56 | XMS_ITS | Clinical Summary ---
Author Organization [facility] [employer] Address [address] [place] [address] Care Team Providers Care Director Social Name Role Phone Unavailable Primary Care Provider Unavailabl e Source Comments [facility],non-owned Affiliates and Associated Physician Practices is amultiple site organization consisting of ambulatory clinics and hospital sitesin [place], [place], [place] and [place]. This disclosure is being madepursuant to the Care Everywhere program and may not contain all information available regarding this patient. Last updated 18.[facility] [employer] Allergies Active Allergy Reactions Criticality Noted Date Comments Penicillins Rash Low 03/11/2015 Medications * Be aware that medications may not be up to date on this document. Alwaysverify current medications with the patient. lansoprazole (PREVACID) 30 MG capsule 1 capsule daily before breakfast 30 capsule 4 7 Active lansoprazole (PREVACID) 30 MG capsule TAKE 1 CAPSULE BY MOUTH DAILY BEFORE BREAKFAST 90 capsule 8 Active Active Problems Problem Noted Date Diagnosed [...] Comments Blood Pressure 110/64 07/12/2017 6:51 PM ACCOUNT SPECIALIST Pulse 114 07/12/2017 6:51 PM ACCOUNT SPECIALIST Temperature 36.9 C (98.4 F) 07/12/2017 6:51 PM ACCOUNT SPECIALIST Respiratory Rate 16 07/12/2017 6:51 PM ACCOUNT SPECIALIST Oxygen Saturation 97% 07/12/2017 6:51 PM ACCOUNT SPECIALIST Inhaled Oxygen Concentration - - Weight 63.5 kg (140 lb) 07/12/2017 6:51 PM ACCOUNT SPECIALIST Height 180.3 cm (5' 11) 07/12/2017 6:51 PM ACCOUNT SPECIALIST Body Mass Index 19.53 07/12/2017 6:51 PM ACCOUNT SPECIALIST Plan of Treatment Health Maintenance Due Date Last Done Comments HIV SCREENING 12/25/2014 HPV VACCINE (1 - Male 3-dose series) 12/25/2014 HEPATITIS C SCREENING 12/21/2017 DTAP/TDAP/TD VACCINES (1 - Tdap) 12/25/2018 HEPATITIS B VACCINE (1 of 3 - 19+ 3-dose series) 12/25/2018 COVID-19 VACCINE (1 - 2023-2 5 season) 2024 DEPRESSION SCREENING 08/13/2024 INFLUENZA VACCINE (#1) 2025 ZOSTER VACCINE (1 of 2) 12/25/2049 HIB VACCINE Aged Out No longer eligi ble based on patient's age to complete this topic MENINGOCOCCAL (Group B) VACC INE SHARED DECISION-MAKING Aged Out No longer eligibl e based on patient's age to complete this topic MENINGOCOCCAL GROUPS A/C/Y/W VACCINE Aged Out No longer eligible b ased on patient's age to complete this topic PNEUMOCOCCAL VACCINE Aged Out No long er eligible based on patient's age to complete this topic Insurance [facility] MEDICAID [facility] SELF PAY NO INSURANCE Member Subscriber Plan / Payer (Ef fective for All Dates) Name:Enrique Shukla Member ID:Not on file Relation to Subscriber:Not on file Name:ENRIQUE SHUKLA Subscriber ID:Not on file (Home) Address: [place] [address] Payer ID:Not on file Group ID:Not on file Type:Self Pay Address: [place], [place] [employer] [employer] [place] * Guarantor: ENRIQUE SHUKLA Account Type Relation to Patient Date of Phone Billing Address Personal/Family [address] [place] [address] [facility] [place]ID [place] * Guarantor: ENRIQUE SHUKLA Account Type Relation to Patient Date of Phone Billing Address Personal/Family [address] [place] [address] [facility] [place]ID [place] * Guarantor: ENRIQUE SHUKLA Account Type Relation to Patient Date of Phone Billing Address Personal/Family [address] [place] [address] [facility] [place]ID [place]
[2025-04-07 10:26] LABS: Alanine Aminotransferase 31 U/L (6-50); Albumin Level 4.9 g/dL (3.5-5.1); Alkaline Phosphatase 102 U/L (38-126); Anion Gap 10 mmol/L (4-12); Aspartate Amino Transferase 33 U/L (17-59); Bilirubin,Total 0.6 mg/dL (0.2-1.3); Blood Urea Nitrogen 16 mg/dL (9-20); Calcium 9.8 mg/dL (8.4-10.2); Carbon Dioxide 30 mmol/L (22-30); Chloride 101 mmol/L (98-107); Estimated Glomerular Filt Rate > 60; Glucose 99 mg/dL (65-110); Potassium 4.4 mmol/L (3.4-5.0); Sodium 141 mmol/L (137-145); Total Protein 8.9 g/dL (6.3-8.2)
[2025-04-07 10:29] LABS: Iron 116 ug/dL (49-181)
[2025-04-07 10:36] LABS: CRP < 0.5 mg/dL (<1.0)
[2025-04-07 10:38] LABS: Percent Iron Saturation 26 % (20-50)
[2025-04-07 11:05] LABS: Ferritin 20.80 ng/mL (17.9-464)
[2025-04-07 11:51] LABS: Vitamin B12 254.0 pg/mL (239-931)
== END 2025-04-07 09:37 | disposition home or self-care (01) ==
PROVIDERS: PCP Family Medicine; Visit Provider Nurse Practitioner
DX: K50.013 Crohn's disease of small intestine with fistula (principal); K21.9 Gastro-esophageal reflux disease without esophagitis; R74.01 Elevation of levels of liver transaminase levels
CPT/HCPCS: 36415; 80053; 82306; 82607; 82728; 82746; 83540; 83550; 85027; 85652; 86140

== ENCOUNTER 2025-04-08 09:32 | Outpatient (NON) | payer BC, SELFPAY ==
--- OUTSIDE RECORDS SUMMARY | 2025-04-08 09:46 | XMS_ITS | Clinical Summary ---
Author Organization [address] Address [address] [place] [id number] Care Team Providers Care Platform Man Name Role Phone No, Physician Primary Care Provider [phone] Allergies Active Allergy Reactions Criticality Noted Date [...] on file Legal Sex Male 5:34 PM MOBILE NURSE Gender Identity Not on file Sexual Orientation Not on file Obstetrics History Last Filed Vital Signs Vital Sign Reading Time Taken Comments Blood Pressure 119/84 10/07/2023 6:20 PM MOBILE NURSE Pulse 103 10/07/2023 6:20 PM MOBILE NURSE Temperature 36.3 C (97.4 F) 10/07/2023 6:20 PM MOBILE NURSE Respiratory Rate 16 10/07/2023 6:20 PM MOBILE NURSE Oxygen Saturation 98% 10/07/2023 6:20 PM MOBILE NURSE Inhaled Oxygen Concentration - - Weight 73.5 kg (162 lb) 10/07/2023 6:20 PM MOBILE NURSE Height 185.4 cm (6' 1) 10/07/2023 6:20 PM MOBILE NURSE Body Mass Index 21.37 10/07/2023 6:20 PM MOBILE NURSE Plan of Treatment Health Maintenance Due Date [...] exists Varicella Vaccines Completed 03/06/2011, 12/31/2000 [place] [employer] [place] [place] Care Teams Platform Man Relationship Specialty Start Date End Date No, Physician PCP - General 10/07/23
--- OUTSIDE RECORDS SUMMARY | 2025-04-08 09:46 | XMS_ITS | Clinical Summary ---
Author Organization [facility] [employer] Address [address] [place] [address] Care Team Providers Care Clinical Statistical Programmer Name Role Phone Unavailable Primary Care Provider Unavailabl e Source Comments [facility],non-owned Affiliates and Associated Physician Practices is amultiple site organization consisting of ambulatory clinics and hospital sitesin [place], [place], [place] and [place]. This disclosure is being madepursuant to the Care Everywhere program and may not contain all information available regarding this patient. Last updated 18.[facility] [employer] Allergies Active Allergy Reactions Criticality Noted Date [...] Comments Blood Pressure 110/64 07/12/2017 6:51 PM CLUTCH ASSEMBLER Pulse 114 07/12/2017 6:51 PM CLUTCH ASSEMBLER Temperature 36.9 C (98.4 F) 07/12/2017 6:51 PM CLUTCH ASSEMBLER Respiratory Rate 16 07/12/2017 6:51 PM CLUTCH ASSEMBLER Oxygen Saturation 97% 07/12/2017 6:51 PM CLUTCH ASSEMBLER Inhaled Oxygen Concentration - - Weight 63.5 kg (140 lb) 07/12/2017 6:51 PM CLUTCH ASSEMBLER Height 180.3 cm (5' 11) 07/12/2017 6:51 PM CLUTCH ASSEMBLER Body Mass Index 19.53 07/12/2017 6:51 PM CLUTCH ASSEMBLER Plan of Treatment Health Maintenance Due Date [...] patient's age to complete this topic Insurance [facility] [place] MEDICA[place] [facility] SELF PAY NO INSURANCE Member Subscriber Plan / Payer (Ef fective for All Dates) Name:Enrique Shukla Member ID:Not on file Relation to Subscriber:Not on file Name:ENRIQUE SHUKLA Subscriber ID:Not on file (Home) Address: [place] [address] Payer ID:Not on file Group ID:Not on file Type:Self Pay Address: [place], [place] * Guarantor: ENRIQUE SHUKLA Account Type Relation to Patient Date of Phone Billing Address Personal/Family [address] [place] [address] [facility] [place] * Guarantor: ENRIQUE SHUKLA Account Type Relation to Patient Date of Phone Billing Address Personal/Family [address] [place] [address] [facility] [place] * Guarantor: ENRIQUE SHUKLA Account Type Relation to Patient Date of Phone Billing Address Personal/Family [address] [place] [address] [facility] [place]
--- OUTSIDE RECORDS SUMMARY | 2025-04-08 09:46 | XMS_ITS | Encounter Summary ---
Author Organization [facility] Address [address] [place] [address] Care Team Providers Care Loom Checker Name Role Phone Abdiel Marte MD Primary Care Provider [phone] Encounter Details Date Type Department Care Team (Late st Contact Info) Description 02/15/2023 Lab Requisition [facility] - Pathology Lab [address] [place] [address] Duke Dorantes MD [address] [place] [phone] Intra-abdominal and pelvic swelling, mass and [...] AM CDT) Case Report Flow Cytometry Case: [id number] Authorizing Provider: Duke Dorantes MD Collected: 02/15/2023 11:32 AM Ordering Location: [facility] Pathology Lab Received: 02/15/2023 05:02 PM [...] the flow cytometry specimen is reviewed for senior quality analyst purposes. Flow cytometry is not performed. 02/15/2023 5:38 PM CDT [facility] Flow Cytometry Results Too few hematopoietic cells for flow cytometric analysis. 02/15/2023 5:38 PM CDT [facility] Reason for test Intra-abdominal and pelvic swelling, mass and lump, unspecified site 02/15/2023 5:38 PM CDT [facility] Client Specimen ID # [id number] 02/15/2023 5:38 PM CDT [facility] Pathologist Location at [facility] 02/15/2023 5:38 PM CDT [facility] Disclaimer Test performed at [facility], [address] [place], [place], [address]. *The established laboratory minimum viability is 70%. [...] complexity clinical testing. 02/15/2023 5:38 PM CDT [facility] Embedded Images 5:38 PM CDT [facility] Pathology/Cytolo gy ENTIRE LYMPH NODE / Unknown 02/15/2023 11:32 AM CDT 02/15/2023 5:02 PM CDT Duke Dorantes MD LAB - PATHOLOGY/CYTOLOGY ORDERAB LES Final Result [facility] [address] [facility] [place] [address], [facility] [phone] documented in this encounter Visit Diagnoses Diagnosis Intra-abdominal and pelvic swelling, mass and lump, unspecified site documented in this encounter Care Teams Loom Checker Relationship Specialty Start Date End Date Abdiel Marte MD [address] [place] [address] PCP - General Pediatrics 03/11/15 01/23/24 documented as of this encounter
[2025-04-11 12:08] LABS: Calprotectin, Fecal 73 ug/g (0-120)
== END 2025-04-08 09:33 | disposition home or self-care (01) ==
LOC: ANHLAB 09:32
PROVIDERS: PCP Family Medicine; Visit Provider Nurse Practitioner
DX: K50.013 Crohn's disease of small intestine with fistula (principal); K21.9 Gastro-esophageal reflux disease without esophagitis; R74.01 Elevation of levels of liver transaminase levels
CPT/HCPCS: 83993